=== PATIENT | male | born 1960 ===

== ENCOUNTER 2017-08-25 15:08 | Inpatient (IN) | payer OTHER ==
[2017-08-25 15:08] VITALS: BMI 25.2
[2017-08-25] MEDS ORDERED: Sodium Chloride 0.9% 1,000 ML IV ONE (16:14)
[2017-08-25] MEDS ORDERED: Morphine 4 MG/ML VIAL IV STA ×2 (16:17→19:23)
[2017-08-25] MEDS ORDERED: Sodium Chloride 0.9% 1,000 ML ONE (16:44)
[2017-08-25 17:13] LABS: BASO % 0.1 % (0.0-2.0); EOS # 0.1 K/uL (0.0-0.7); EOS % 0.1 % (0.0-4.0); HEMOGLOBIN 12.9 g/dL (12.0-18.0); LYMPH # 1.4 K/uL (1.0-4.3); LYMPH % 3.2 % (20.0-40.0); MEAN CORPUSCULAR HEMOGLOBIN 31.8 pg (27.0-31.0); MEAN PLATELET VOLUME 8.7 fL (7.2-11.7); MONO # 1.2 K/uL (0.0-0.8); MONO % 2.9 % (0.0-10.0); NEUT # 40.6 K/uL (1.8-7.0); NEUT % 93.7 % (50.0-75.0); RBC 4.06 Mil/uL (4.40-5.90)
[2017-08-25 17:14] LABS: URINE BILIRUBIN NEGATIVE (NEGATIVE); URINE BLOOD NEGATIVE (NEGATIVE); URINE CLARITY Clear (Clear); URINE COLOR Yellow (YELLOW); URINE GLUCOSE (UA) NORMAL (Normal); URINE LEUKOCYTE ESTERASE NEG Leu/uL (Negative); URINE PROTEIN NEGATIVE (NEGATIVE); URINE UROBILINOGEN NORMAL mg/dL (0.2-1.0)
[2017-08-25 17:24] LABS: ALB/GLOB RATIO 1.4 (1.0-2.1); ALBUMIN 4.3 g/dL (3.5-5.0); CALCIUM 8.5 mg/dl (8.6-10.4); GFR AFRICAN-AMERICAN > 60; GFR NON-AFRICAN AMERICAN > 60; MEAN CELL VOLUME 96.5 fL (80.0-94.0); PLATELET COUNT 188 K/uL (130-400); WHITE BLOOD COUNT 43.3 K/uL (4.8-10.8)
[2017-08-25 17:25] LABS: ALT/SGPT 36 U/L (21-72); AST/SGOT 37 U/L (17-59); BLOOD UREA NITROGEN 6 mg/dL (9-20); LIPASE < 10 U/L (23-300)
[2017-08-25] MEDS ORDERED: Iodixanol 320 MG/ML 100 ML BOTTLE IV ONE (17:48)
[2017-08-25 18:53] LABS: BANDS 8 % (0-2); LYMPHOCYTE 2 % (20-40); MONOCYTE 2 % (0-10); NEUTROPHIL 88 % (50-75); PLATELET ESTIMATE NORMAL (NORMAL); TOTAL CELLS COUNTED 100
[2017-08-25 18:54] LABS: MICROCYTOSIS SLIGHT
--- NOTE | 2017-08-25 18:54 | CT ---
PROCEDURE: CT Abdomen and Pelvis with contrast HISTORY: right-sided abd pain - h/o liver CA COMPARISON: None. TECHNIQUE: Contrast dose: 100 mL Visipaque 320 Radiation dose: Total exam DLP = 237.63 mGy-cm. This CT exam was performed using one or more of the following dose reduction techniques: Automated exposure control, adjustment of the mA and/or kV according to patient size, and/or use of iterative reconstruction technique. FINDINGS: LOWER THORAX: Minimal linear scar/atelectasis right lower lobe. LIVER: Normal size and contour. Multiple hepatic masses suspicious for metastasis. Soft tissue density contiguous with inferior right lobe of liver extending into right lateral abdominal wall, new since prior. This represents interval change since 11/15/2016 no biliary dilatation. . Nonspecific periportal edema. GALLBLADDER AND BILE DUCTS: Gallbladder not visualized. Soft tissue density in the region of the gallbladder fossa, nonspecific. This was present previously as well. Uncertain significance. Suspicious for pancreatic neoplasm. PANCREAS: Status post partial pancreatectomy. The pancreatic body/ tail unremarkable. SPLEEN: Mild splenomegaly. ADRENALS: Unremarkable. No mass. KIDNEYS AND URETERS: Unremarkable. No hydronephrosis. No solid mass. VASCULATURE: Unremarkable. No aortic aneurysm. BOWEL: Gastrojejunostomy. Likely prior Whipple procedure. APPENDIX: Unremarkable PERITONEUM: No ascites. There are multiple small mesenteric soft tissue nodules, largest approximately 1.3 cm. Suspicious for metastatic disease. These were not clearly evident on prior CT examination. LYMPH NODES: Unremarkable. No enlarged lymph nodes. BLADDER: Normal REPRODUCTIVE: Unremarkable prostate BONES: No acute fracture. OTHER FINDINGS: None. IMPRESSION: Status post partial pancreatectomy/ Whipple procedure. Gastrojejunostomy. . Ill-defined soft tissue density in rasta hepatis region and region of pancreatic head. Suspicious for neoplasm. Suspect mesenteric metastases. Hepatic metastases. Soft tissue density extending through right lateral abdominal wall. Nonspecific periportal edema. Gastrojejunostomy.
[2017-08-25 18:55] LABS: LARGE PLATELETS PRESENT
[2017-08-25] MEDS ORDERED: Ciprofloxacin 400mg/200ml D5W 400 MG/200 ML BAG IVPB STA (19:23)
[2017-08-25] MEDS ORDERED: metroNIDAZOLE IV 500 mg/100 ml 500 MG/100 ML BAG IVPB STA (19:23)
--- NOTE | 2017-08-25 19:40 | C.PDOC ---
History Of Present Illness 57 y/o male with history of Pancreatic cancer presents to ED with c/o upper abdominal pain "for couple of days" associated with nausea and vomiting. Patient states he finished chemotherapy for cancer 2 weeks ago and states " spots on liver were found but not cancerous". Patient denies blood in stool, fever, hematuria or any other complaints at this time. Chief Complaint (Nursing): Abdominal Pain History Per: Patient History/Exam Limitations: no limitations Onset/Duration Of Symptoms: Days Current Symptoms Are (Timing): Still Present Location Of Pain/Discomfort: Epigastric Past Medical History Reviewed: Historical Data, Nursing Documentation, Vital Signs Vital Signs: Last Vital Signs Temp 98.3 F 08/26/17 00:16 Pulse 71 08/26/17 00:16 Resp 20 08/26/17 00:16 BP 111/77 08/26/17 00:16 Pulse Ox 98 08/26/17 00:16 - Medical History PMH: CHF, Gastritis, HTN, Malignancy (Pancreatic) Surgical History: No Surg Hx - [facility] Procedures DILATION OF COMMON BILE DUCT WITH INTRALUMINAL DEVICE, ENDO (11/30/15) DRAINAGE OF COMMON BILE DUCT, ENDO (11/30/15) Family History: States: No Known Family Hx - Social History Hx Tobacco Use: No Hx Alcohol Use: No Hx Substance Use: No - Immunization History Hx Tetanus Toxoid Vaccination: No Hx Influenza Vaccination: No Hx Pneumococcal Vaccination: No Review Of Systems Constitutional: Negative for: Fever, Chills Gastrointestinal: Positive for: Nausea, Vomiting, Abdominal Pain Genitourinary: Negative for: Dysuria, Hematuria Skin: Negative for: Rash Physical Exam - Physical Exam Appears: Non-toxic, Other (In mild discomfort) Skin: Warm, Dry, No Rash Head: Atraumatic, Normacephalic Eye(s): bilateral: Normal Inspection Oral Mucosa: Moist Neck: Normal ROM, Supple Cardiovascular: Rhythm Regular Respiratory: Normal Breath Sounds, No Rales, No Rhonchi, No Wheezing Gastrointestinal/Abdominal: Bowel Sounds, Soft, Tenderness (diffuse but mostly on right side), No Guarding, No Rebound Neurological/Psych: Oriented x3, Normal Speech, Normal Cognition ED Course And Treatment - Laboratory Results Result Diagrams: 08/25/17 17:05 08/25/17 17:05 O2 Sat by Pulse Oximetry: 99 (RA) Pulse Ox Interpretation: Normal Medical Decision Making Medical Decision Making: Progress: Spoke to Dr. Anguiano, admit under her service and antibiotics started in ED Disposition - Disposition Disposition: HOSPITALIZED Disposition Time: 18:40 Condition: GUARDED - Clinical Impression Clinical Impression: Abdominal pain - Scribe Statement The provider has reviewed the documentation as recorded by the Randyibdavid Nguyen All medical record entries made by the Randyibdavid were at my direction and personally dictated by me. I have reviewed the chart and agree that the record accurately reflects my personal performance of the history, physical exam, medical decision making, and the department course for this patient. I have also personally directed, reviewed, and agree with the discharge instructions and disposition.
[2017-08-25] MEDS ORDERED: metroNIDAZOLE IV 500 mg/100 ml 500 MG/100 ML BAG ONE (19:46)
[2017-08-25] MEDS ORDERED: Morphine 4 MG/ML VIAL ONE (19:46)
[2017-08-25] MEDS ORDERED: Ciprofloxacin 400mg/200ml D5W 400 MG/200 ML BAG IVPB ONE (21:08)
[2017-08-26] MEDS: HYDROmorphone 0.5 mg/0.5 ml ISec IVP PRN ×4 (00:49→21:25)
[2017-08-26 10:01] LABS: HEMOGLOBIN 11.9 g/dL (12.0-18.0); MEAN CORPUSCULAR HGB CONC 33.4 g/dL (33.0-37.0); MEAN PLATELET VOLUME 8.8 fL (7.2-11.7); RBC 3.71 Mil/uL (4.40-5.90); RED CELL DISTRIBUTION WIDTH 14.1 % (11.5-14.5); WHITE BLOOD COUNT 21.8 K/uL (4.8-10.8)
[2017-08-26 10:23] LABS: ALB/GLOB RATIO 1.3 (1.0-2.1); ALBUMIN 3.5 g/dL (3.5-5.0); ALT/SGPT 36 U/L (21-72); AST/SGOT 30 U/L (17-59); BLOOD UREA NITROGEN 6 mg/dL (9-20); CALCIUM 8.4 mg/dl (8.6-10.4); GFR AFRICAN-AMERICAN > 60; GFR NON-AFRICAN AMERICAN > 60
--- NOTE | 2017-08-26 10:29 | CP.PCM.CON ---
<Hussain Sauceda - Last Filed: 08/26/17 10:09> History of Present Illness - History of Present Illness History of Present Illness: Initial GI Consult Note - Ihsan Sauceda PGY2 Patient is a 57yo male with past medical history of pancreatic adenocarcinoma diagnosed in 11/2015 s/p whipple procedure and presently on chemotherapy that presents c/o abdominal pain. He reported that the pain localizes to the epigastric region with radiation to the right flank and 10/10 in severity associated with nausea and non-bilious, non-bloody vomiting. He reported that he has had nausea/vomiting that normally lasts 2-3 days since starting chemotherapy however on this particular occasion his symptoms had lasted longer than usual and with greater severity. His last chemotherapy session was reportedly 2-3 weeks prior during which time he received neulasta. He also admitted to approximately 6lb weight loss within 2 weeks however reported fluctuating weights. Presently, he denies chest pain, palpitations, SOB, fever, chills, cough, focal weakness, numbness, tingling, diarrhea, melena, hematochezia, hematemesis. 12point ROS as per above otherwise negative PMH: as stated above PSH: portacath, whipple procedure, right inguinal hernia repair Family Hx: no reported GI malignancy in the family; father with lung ca Social Hx: Former tobacco use for 20-25 years, 1ppd quit 8 years ago, denies alcohol and illicit drug use Endoscopic Hx: Underwent EGD/EUS/ERCP on 03/21/2016 which revealed 1.7cm x 1.7cm pancreatic head mass with no apparent portal vein or liver involvement as that time, CBD measured up to 10mm; underwent plastic stent exchange that was originally placed on 12/01/2015 Oncologist: Dr. Ivan Past Patient History - Past Medical History & Family History Past Medical History?: Yes - Past Social History Smoking Status: Former Smoker - CARDIAC Hx Cardiac Disorders: Yes Hx Hypertension: Yes - PULMONARY Hx Respiratory Disorders: No - NEUROLOGICAL Hx Neurological Disorder: No - HEENT Hx HEENT Problems: No - RENAL Hx Chronic Kidney Disease: No - ENDOCRINE/METABOLIC Hx Endocrine Disorders: No - HEMATOLOGICAL/ONCOLOGICAL Hx Blood Disorders: Yes Hx Blood Transfusions: No Hx Blood Transfusion Reaction: No Hx Cancer: Yes (pancreatic ca with liver mets) Hx Chemotherapy: Yes - INTEGUMENTARY Hx Dermatological Problems: No - MUSCULOSKELETAL/RHEUMATOLOGICAL Hx Falls: No - GASTROINTESTINAL Hx Gastrointestinal Disorders: Yes Hx Gastritis: Yes - GENITOURINARY/GYNECOLOGICAL Hx Genitourinary Disorders: No - PSYCHIATRIC Hx Substance Use: No - SURGICAL HISTORY Hx Surgeries: Yes (R HERNIA ABOUT 5YRS AGO) Other/Comment: Pancreatectomy/Whipple procedure, Gastojejunostomy 2016 - ANESTHESIA Hx Anesthesia: Yes Hx Anesthesia Reactions: No Hx Malignant Hyperthermia: No Has any member of the family had a problem w/ anesthesia?: No Meds Allergies/Adverse Reactions: Allergies Allergy/AdvReac Type Severity Reaction Status Date / Time No Known Allergies Allergy Verified 02/01/16 09:23 - Medications Medications: Current Medications Heparin Sodium (Porcine) (Heparin) 5,000 units SC Q12 MICHAEL Hydromorphone HCl (Dilaudid) 0.25 mg IVP Q6H PRN PRN Reason: Pain, severe (8-10) Last Admin: 08/26/17 09:08 Dose: 0.25 mg Pneumococcal Polyvalent Vaccine (Pneumovax 23 Vaccine) 0.5 ml IM .ONCE ONE Stop: 08/27/17 10:01 Physical Exam - Constitutional Appears: Older Than Stated Age, Chronically Ill - Head Exam Head Exam: ATRAUMATIC, NORMOCEPHALIC - Eye Exam Eye Exam: EOMI Pupil Exam: PERRL - ENT Exam ENT Exam: Mucous Membranes Moist - Respiratory Exam Respiratory Exam: Clear to Auscultation Bilateral. absent: Rales, Rhonchi, Wheezes - Cardiovascular Exam Cardiovascular Exam: +S1, +S2. absent: Gallop, JVD, Rubs - GI/Abdominal Exam GI & Abdominal Exam: Normal Bowel Sounds, Soft, Tenderness (tender to palpation in epigastric and RUQ region). absent: Distended, Firm, Guarding - Extremities Exam Extremities exam: Positive for: normal inspection. Negative for: pedal edema, tenderness - Neurological Exam Neurological exam: Alert, CN II-XII Intact, Oriented x3 - Psychiatric Exam Psychiatric exam: Normal Affect, Normal Mood - Skin Skin Exam: Dry, Intact, Normal Color, Warm Results - Vital Signs Recent Vital Signs: Last Vital Signs Temp 98 F 08/26/17 07:35 Pulse 70 08/26/17 07:35 Resp 20 08/26/17 07:35 BP 119/79 08/26/17 07:35 Pulse Ox 97 08/26/17 07:35 - Labs Result Diagrams: 08/26/17 09:56 08/25/17 17:05 Labs: Laboratory Results - last 24 hr 08/25/17 08/25/17 08/25/17 17:05 17:05 17:05 WBC 43.3 H* D RBC 4.06 L Hgb 12.9 Hct 39.2 MCV 96.5 H D MCH 31.8 H MCHC 33.0 RDW 14.0 Plt Count 188 D MPV 8.7 Neut % (Auto) 93.7 H Lymph % (Auto) 3.2 L Carbon % (Auto) 2.9 Eos % (Auto) 0.1 Baso % (Auto) 0.1 Neut # (Auto) 40.6 H Lymph # (Auto) 1.4 Carbon # (Auto) 1.2 H Eos # (Auto) 0.1 Baso # (Auto) 0.0 Neutrophils % (Manual) 88 H Band Neutrophils % 8 H Lymphocytes % (Manual) 2 L Monocytes % (Manual) 2 Platelet Estimate Normal Large Platelets Present Microcytosis (manual) Slight Sodium 141 Potassium 4.3 Chloride 102 Carbon Dioxide 25 Anion Gap 18 BUN 6 L Creatinine 0.7 L Est GFR ( Amer) > 60 Est GFR (Non-Af Amer) > 60 Random Glucose 84 Calcium 8.5 L Total Bilirubin 0.6 AST 37 ALT 36 Alkaline Phosphatase 268 H Total Protein 7.4 Albumin 4.3 Globulin 3.1 Albumin/Globulin Ratio 1.4 Lipase < 10 L Urine Color Yellow Urine Clarity Clear Urine pH 5.0 Ur Specific Camp 1.011 Urine Protein Negative Urine Glucose (UA) Normal Urine Ketones Negative Urine Blood Negative Urine Nitrate Negative Urine Bilirubin Negative Urine Urobilinogen Normal Ur Leukocyte Esterase Neg Urine WBC (Auto) 1 Urine RBC (Auto) 1 08/26/17 09:56 WBC 21.8 H RBC 3.71 L Hgb 11.9 L Hct 35.6 MCV 96.0 H MCH 32.0 H MCHC 33.4 RDW 14.1 Plt Count 154 MPV 8.8 Neut % (Auto) Lymph % (Auto) Carbon % (Auto) Eos % (Auto) Baso % (Auto) Neut # (Auto) Lymph # (Auto) Carbon # (Auto) Eos # (Auto) Baso # (Auto) Neutrophils % (Manual) Band Neutrophils % Lymphocytes % (Manual) Monocytes % (Manual) Platelet Estimate Large Platelets Microcytosis (manual) Sodium Potassium Chloride Carbon Dioxide Anion Gap BUN Creatinine Est GFR ( Amer) Est GFR (Non-Af Amer) Random Glucose Calcium Total Bilirubin AST ALT Alkaline Phosphatase Total Protein Albumin Globulin Albumin/Globulin Ratio Lipase Urine Color Urine Clarity Urine pH Ur Specific Camp Urine Protein Urine Glucose (UA) Urine Ketones Urine Blood Urine Nitrate Urine Bilirubin Urine Urobilinogen Ur Leukocyte Esterase Urine WBC (Auto) Urine RBC (Auto) Assessment & Plan - Assessment and Plan (Free Text) Plan: 57yo male with history of pancreatic head adenocarcinoma s/p whipple presently on chemotherapy presents c/o abdominal pain associated with nausea/vomiting 1. Abdominal pain 2. Leukocytosis 3. Hx of pancreatic adenocarcinoma -Case discussed with oncology, patient had received neulasta during prior oncology visit -CT abd/pelvis reviewed; revealed multiple hepatic masses suspicious for metastases and multiple mesenteric soft tissue nodules (largest 1.3cm) suspicious for metastatic disease; refer to full report -Start full liquid diet to be advanced as tolerated -Pain control -Continue present medical management at this time Patient seen and case discussed/reviewed with attending, Dr. Floyd <Morales Floyd Y - Last Filed: 08/26/17 13:25> Meds - Medications Medications: Current Medications Heparin Sodium (Porcine) (Heparin) 5,000 units SC Q12 [facility] Last Admin: 08/26/17 10:54 Dose: 5,000 units Hydromorphone HCl (Dilaudid) 0.25 mg IVP Q6H PRN PRN Reason: Pain, severe (8-10) Last Admin: 08/26/17 09:08 Dose: 0.25 mg Piperacillin Sod/Tazobactam Sod (Zosyn 3.375 Gm Iv Premix) 3.375 gm in 50 mls @ 100 mls/hr IVPB Q8 MICHAEL PRN Reason: Protocol Pantoprazole Sodium (Protonix Ec Tab) 40 mg PO DAILY [facility] Pneumococcal Polyvalent Vaccine (Pneumovax 23 Vaccine) 0.5 ml IM .ONCE ONE Stop: 08/27/17 10:01 Results - Vital Signs Recent Vital Signs: Last Vital Signs Temp 98 F 08/26/17 07:35 Pulse 70 08/26/17 07:35 Resp 20 08/26/17 07:35 BP 119/79 08/26/17 07:35 Pulse Ox 97 08/26/17 07:35 - Labs Result Diagrams: 08/26/17 09:56 08/26/17 09:56 Labs: Laboratory Results - last 24 hr 08/25/17 08/25/17 08/25/17 17:05 17:05 17:05 WBC 43.3 H* D RBC 4.06 L Hgb 12.9 Hct 39.2 MCV 96.5 H D MCH 31.8 H MCHC 33.0 RDW 14.0 Plt Count 188 D MPV 8.7 Neut % (Auto) 93.7 H Lymph % (Auto) 3.2 L Carbon % (Auto) 2.9 Eos % (Auto) 0.1 Baso % (Auto) 0.1 Neut # (Auto) 40.6 H Lymph # (Auto) 1.4 Carbon # (Auto) 1.2 H Eos # (Auto) 0.1 Baso # (Auto) 0.0 Neutrophils % (Manual) 88 H Band Neutrophils % 8 H Lymphocytes % (Manual) 2 L Monocytes % (Manual) 2 Platelet Estimate Normal Large Platelets Present Microcytosis (manual) Slight Smear Path Review Sodium 141 Potassium 4.3 Chloride 102 Carbon Dioxide 25 Anion Gap 18 BUN 6 L Creatinine 0.7 L Est GFR ( Amer) > 60 Est GFR (Non-Af Amer) > 60 Random Glucose 84 Calcium 8.5 L Total Bilirubin 0.6 AST 37 ALT 36 Alkaline Phosphatase 268 H Total Protein 7.4 Albumin 4.3 Globulin 3.1 Albumin/Globulin Ratio 1.4 Lipase < 10 L Urine Color Yellow Urine Clarity Clear Urine pH 5.0 Ur Specific Camp 1.011 Urine Protein Negative Urine Glucose (UA) Normal Urine Ketones Negative Urine Blood Negative Urine Nitrate Negative Urine Bilirubin Negative Urine Urobilinogen Normal Ur Leukocyte Esterase Neg Urine WBC (Auto) 1 Urine RBC (Auto) 1 08/26/17 08/26/17 09:56 09:56 WBC 21.8 H RBC 3.71 L Hgb 11.9 L Hct 35.6 MCV 96.0 H MCH 32.0 H MCHC 33.4 RDW 14.1 Plt Count 154 MPV 8.8 Neut % (Auto) Lymph % (Auto) Carbon % (Auto) Eos % (Auto) Baso % (Auto) Neut # (Auto) Lymph # (Auto) Carbon # (Auto) Eos # (Auto) Baso # (Auto) Neutrophils % (Manual) Band Neutrophils % Lymphocytes % (Manual) Monocytes % (Manual) Platelet Estimate Large Platelets Microcytosis (manual) Smear Path Review Sodium 142 Potassium 4.1 Chloride 104 Carbon Dioxide 28 Anion Gap 15 BUN 6 L Creatinine 0.6 L Est GFR ( Amer) > 60 Est GFR (Non-Af Amer) > 60 Random Glucose 91 Calcium 8.4 L Total Bilirubin 0.4 AST 30 ALT 36 Alkaline Phosphatase 262 H Total Protein 6.3 Albumin 3.5 Globulin 2.8 Albumin/Globulin Ratio 1.3 Lipase Urine Color Urine Clarity Urine pH Ur Specific Camp Urine Protein Urine Glucose (UA) Urine Ketones Urine Blood Urine Nitrate Urine Bilirubin Urine Urobilinogen Ur Leukocyte Esterase Urine WBC (Auto) Urine RBC (Auto) Attending/Attestation - Attestation I have personally seen and examined this patient.: Yes I have fully participated in the care of the patient.: Yes I have reviewed all pertinent clinical information: Yes Notes (Text): 08/26/17 13:18 I have seen and examined patient with GI fellow and medical i d sales. Agree with above documentation with the following additions. In brief, this is a 57 year old male with history of pancreatic cancer s/p whipple on chemotherapy who presents to hospital with complaint of abdominal pain. He describes persistent epigastric abdominal pain for the past 3 months which has gotten worse over the past 2 weeks. He endorses sharp 10/10 intensity epigastric pain that radiates to right side and associated with nausea and non-bloody emesis. He has been receiving chemotherapy, followed by Dr. Ivan, received Neulasta with last dose two weeks ago. He denies recent travel, sick contacts, unusual food consumption , fever/chills. He does report a weight loss of nearly 6 pounds over the past two weeks. No recurrent vomiting since arrival to hospital, he is hungry and asking for diet to be advanced. Review of vitals from today are normal. Additional physical examination: Abdomen: no palpable hepato/splenomegaly Pancreatic cancer s/p whipple on chemotherapy Abdominal pain CT imaging reviewed by me showing multiple hepatic lesions and peritoneal implants suggestive of metastatic disease - Liquid diet as tolerated - Continue with PPI therapy - Leukocytosis likely related to neulasta, no clinical indication to suspect infectious process, follow up ID recommendations - Follow up oncology recommendations - Currently no indication for GI intervention despite advanced disease, no obstructive pathology noted. Will continue to monitor patient clinical course.
--- NOTE | 2017-08-26 12:40 | CP.PCM.CON ---
History of Present Illness - History of Present Illness History of Present Illness: INFECTIOUS DISEASE CONSULT; HPI; Patient is a 57yo male with past medical history of pancreatic adenocarcinoma diagnosed in 11/2015 s/p whipple procedure and presently on chemotherapy that presents c/o abdominal pain. He reported that the pain localizes to the epigastric region with radiation to the right flank and 10/10 in severity associated with nausea and non-bilious, non-bloody vomiting. He reported that he has had nausea/vomiting that normally lasts 2-3 days since starting chemotherapy however on this particular occasion his symptoms had lasted longer than usual and with greater severity. His last chemotherapy session was reportedly 2-3 weeks prior during which time he received neulasta. He also admitted to approximately 6lb weight loss within 2 weeks however reported fluctuating weights. Presently, he denies chest pain, palpitations, SOB , fever, chills, cough, focal weakness, numbness, tingling, diarrhea, melena, hematochezia, hematemesis. INFECTIOUS DISEASE CONSULTATION REQUESTED BY PMD DR GRAVES BECAUSE OF INCREASING LEUKOCYTOSIS OF 43,000. PATIENT WAS GIVEN A DOSE OF CIPRO AND iv fLAGYL IN THE ER. THIS A.M. PATIENT'S WBC IMPROVED TO 21.8. pATIENT DENIES ANY COUGH OR EXPECTORATION. DENIES ANY CHEST PAIN/OR SHORTNESS OF BREATH. CT ABDOMEN AND PELVIS WITH iv CONTRAST ON 08/25/17-SHOWED PARTIAL PANCREATECTOMY , wHIPPLE'S PROCEDURE, GASTROJEJUNOSTOMY. ILL-DEFINED MASS LARRY HEPATIS REGION PANCREATIC HEAD? NEOPLASM WITH ? MESENTERIC METASTASIS/HEPATIC METASTASIS. PMH: CHF, Gastritis, HTN, Malignancy (Pancreatic) Surgical History: No Surg Hx FH; DENIES CA IN FAMILY. - [facility] Procedures DILATION OF COMMON BILE DUCT WITH INTRALUMINAL DEVICE, ENDO (11/30/15) DRAINAGE OF COMMON BILE DUCT, ENDO (11/30/15) Family History: States: No Known Family Hx - Social History Hx Tobacco Use: No Hx Alcohol Use: No Hx Substance Use: No - Immunization History Hx Tetanus Toxoid Vaccination: No Hx Influenza Vaccination: No Hx Pneumococcal Vaccination: No ALLERGY; NKA. Review of Systems - Constitutional Constitutional: absent: Chills, Fever - EENT Eyes: absent: Change in Vision Nose/Mouth/Throat: absent: Mouth Lesions, Odynophagia - Cardiovascular Cardiovascular: absent: Chest Pain, Dyspnea, Dyspnea on Exertion - Respiratory Respiratory: absent: Cough, Hemoptysis - Gastrointestinal Gastrointestinal: Abdominal Pain (EPIGASTRIC/RIGHT FLANK .) - Genitourinary Genitourinary: absent: Dysuria, Hematuria, Freq UTI - Integumentary Integumentary: absent: Sores - Neurological Neurological: absent: Headaches, Tremor - Hematologic/Lymphatic Hematologic: As Per HPI. absent: Easy Bleeding, Easy Bruising, Lymphadenopathy Past Patient History - Past Medical History & Family History Past Medical History?: Yes - Past Social History Smoking Status: Former Smoker - CARDIAC Hx Cardiac Disorders: Yes Hx Hypertension: Yes - PULMONARY Hx Respiratory Disorders: No - NEUROLOGICAL Hx Neurological Disorder: No - HEENT Hx HEENT Problems: No - RENAL Hx Chronic Kidney Disease: No - ENDOCRINE/METABOLIC Hx Endocrine Disorders: No - HEMATOLOGICAL/ONCOLOGICAL Hx Blood Disorders: Yes Hx Blood Transfusions: No Hx Blood Transfusion Reaction: No Hx Cancer: Yes (pancreatic ca with liver mets) Hx Chemotherapy: Yes - INTEGUMENTARY Hx Dermatological Problems: No - MUSCULOSKELETAL/RHEUMATOLOGICAL Hx Falls: No - GASTROINTESTINAL Hx Gastrointestinal Disorders: Yes Hx Gastritis: Yes - GENITOURINARY/GYNECOLOGICAL Hx Genitourinary Disorders: No - PSYCHIATRIC Hx Substance Use: No - SURGICAL HISTORY Hx Surgeries: Yes (R HERNIA ABOUT 5YRS AGO) Other/Comment: Pancreatectomy/Whipple procedure, Gastojejunostomy 2015 - ANESTHESIA Hx Anesthesia: Yes Hx Anesthesia Reactions: No Hx Malignant Hyperthermia: No Has any member of the family had a problem w/ anesthesia?: No Meds Allergies/Adverse Reactions: Allergies Allergy/AdvReac Type Severity Reaction Status Date / Time No Known Allergies Allergy Verified 02/01/16 09:23 - Medications Medications: Current Medications Heparin Sodium (Porcine) (Heparin) 5,000 units SC Q12 MICHAEL Last Admin: 08/26/17 10:54 Dose: 5,000 units Hydromorphone HCl (Dilaudid) 0.25 mg IVP Q6H PRN PRN Reason: Pain, severe (8-10) Last Admin: 08/26/17 09:08 Dose: 0.25 mg Pneumococcal Polyvalent Vaccine (Pneumovax 23 Vaccine) 0.5 ml IM .ONCE ONE Stop: 08/27/17 10:01 Physical Exam - Constitutional Appears: No Acute Distress, Cachectic, Chronically Ill - Head Exam Head Exam: NORMAL INSPECTION - Eye Exam Eye Exam: EOMI, PERRL. absent: Scleral icterus - ENT Exam ENT Exam: Normal Oropharynx - Neck Exam Neck exam: Positive for: Normal Inspection - Respiratory Exam Respiratory Exam: Clear to Auscultation Bilateral - Cardiovascular Exam Cardiovascular Exam: REGULAR RHYTHM, +S1, +S2 - GI/Abdominal Exam GI & Abdominal Exam: Normal Bowel Sounds, Soft, Tenderness (EPIGASTRIC AND RIGHT FLANK REGION ON PALPATION.). absent: Organomegaly - Extremities Exam Extremities exam: Positive for: pedal pulses present. Negative for: calf tenderness, pedal edema - Neurological Exam Neurological exam: Alert, CN II-XII Intact, Oriented x3, Reflexes Normal - Psychiatric Exam Psychiatric exam: Normal Mood - Skin Skin Exam: Normal Color, Warm Results - Vital Signs Recent Vital Signs: Last Vital Signs Temp 98 F 08/26/17 07:35 Pulse 70 08/26/17 07:35 Resp 20 08/26/17 07:35 BP 119/79 08/26/17 07:35 Pulse Ox 97 08/26/17 07:35 - Labs Result Diagrams: 08/26/17 09:56 08/26/17 09:56 Labs: Laboratory Results - last 24 hr 08/25/17 08/25/17 08/25/17 17:05 17:05 17:05 WBC 43.3 H* D RBC 4.06 L Hgb 12.9 Hct 39.2 MCV 96.5 H D MCH 31.8 H MCHC 33.0 RDW 14.0 Plt Count 188 D MPV 8.7 Neut % (Auto) 93.7 H Lymph % (Auto) 3.2 L Elliott % (Auto) 2.9 Eos % (Auto) 0.1 Baso % (Auto) 0.1 Neut # (Auto) 40.6 H Lymph # (Auto) 1.4 Elliott # (Auto) 1.2 H Eos # (Auto) 0.1 Baso # (Auto) 0.0 Neutrophils % (Manual) 88 H Band Neutrophils % 8 H Lymphocytes % (Manual) 2 L Monocytes % (Manual) 2 Platelet Estimate Normal Large Platelets Present Microcytosis (manual) Slight Smear Path Review Sodium 141 Potassium 4.3 Chloride 102 Carbon Dioxide 25 Anion Gap 18 BUN 6 L Creatinine 0.7 L Est GFR ( Amer) > 60 Est GFR (Non-Af Amer) > 60 Random Glucose 84 Calcium 8.5 L Total Bilirubin 0.6 AST 37 ALT 36 Alkaline Phosphatase 268 H Total Protein 7.4 Albumin 4.3 Globulin 3.1 Albumin/Globulin Ratio 1.4 Lipase < 10 L Urine Color Yellow Urine Clarity Clear Urine pH 5.0 Ur Specific [place] 1.011 Urine Protein Negative Urine Glucose (UA) Normal Urine Ketones Negative Urine Blood Negative Urine Nitrate Negative Urine Bilirubin Negative Urine Urobilinogen Normal Ur Leukocyte Esterase Neg Urine WBC (Auto) 1 Urine RBC (Auto) 1 08/26/17 08/26/17 09:56 09:56 WBC 21.8 H RBC 3.71 L Hgb 11.9 L Hct 35.6 MCV 96.0 H MCH 32.0 H MCHC 33.4 RDW 14.1 Plt Count 154 MPV 8.8 Neut % (Auto) Lymph % (Auto) Elliott % (Auto) Eos % (Auto) Baso % (Auto) Neut # (Auto) Lymph # (Auto) Elliott # (Auto) Eos # (Auto) Baso # (Auto) Neutrophils % (Manual) Band Neutrophils % Lymphocytes % (Manual) Monocytes % (Manual) Platelet Estimate Large Platelets Microcytosis (manual) Smear Path Review Sodium 142 Potassium 4.1 Chloride 104 Carbon Dioxide 28 Anion Gap 15 BUN 6 L Creatinine 0.6 L Est GFR ( Amer) > 60 Est GFR (Non-Af Amer) > 60 Random Glucose 91 Calcium 8.4 L Total Bilirubin 0.4 AST 30 ALT 36 Alkaline Phosphatase 262 H Total Protein 6.3 Albumin 3.5 Globulin 2.8 Albumin/Globulin Ratio 1.3 Lipase Urine Color Urine Clarity Urine pH Ur Specific [place] Urine Protein Urine Glucose (UA) Urine Ketones Urine Blood Urine Nitrate Urine Bilirubin Urine Urobilinogen Ur Leukocyte Esterase Urine WBC (Auto) Urine RBC (Auto) Assessment & Plan (1) Abdominal pain Assessment and Plan: LOPEZ CULTURE. START IV ZOSYN 3.375MG IV Q 8HRLY.08/25/17. AWAIT CULTURES TO ADJUST ABXS. IF CULTURES -VE X 24-36HRS WILL DC ABX. LEKOCYTOSIS SEC. -SEPSIS -INTRA ABDOMINAL NECROTIZING TUMOR VS NEULASTA. WILL FOLLOW. Status: Acute (2) Pancreatic cancer Status: Acute (3) Pancreatic mass Status: Acute (4) History of partial pancreatectomy Assessment and Plan: S/P PARTIAL PANCREATECTOMY/wHIPPLE'S PROCEDURE gASTROJEJUNOSTOMY AT [facility] – [place] 2015. Status: Acute
[2017-08-26] MEDS: Pantoprazole 40 mg EC Tab PO SCH (13:43)
[2017-08-26] MEDS: Piperacill/Tazo 3.375gm in Dex 3.375 GM/50 ML BAG IVPB SCH ×2 (13:43→21:27)
[2017-08-27] MEDS: HYDROmorphone 0.5 mg/0.5 ml ISec IVP PRN ×3 (03:55→19:52)
--- NOTE | 2017-08-27 06:07 | HP ---
CHIEF COMPLAINT: Abdominal pain. HISTORY OF PRESENT ILLNESS: Mr. Roman Hill is a 57-year-old male with history of pancreatic cancer, came to the emergency room, complaining of upper abdominal pain for couple of days associated with nausea and vomiting. The patient said that he missed chemotherapy for cancer 2 weeks ago and states spots of liver were found, but not cancers. The patient denies blood in the stool or fever, hematuria, hematochezia, dyspnea, or dysuria. PAST MEDICAL HISTORY: Congestive heart failure, gastritis, hypertension, pancreatic malignancy. PAST SURGICAL HISTORY: No. HABITS: No tobacco. No alcohol. No substance abuse. REVIEW OF SYSTEMS: The patient was seen and examined at the bedside, complaining about abdominal pain. No fever. No chills. No headache or dizziness. No chest pain or palpitation. No dyspnea. No dysuria. PHYSICAL EXAMINATION: VITAL SIGNS: Temperature 98.3, pulse 71, respiratory rate 20, blood pressure 111/77, and pulse oximetry 98. HEENT: Head, normocephalic and atraumatic. Eyes, PERRLA. Extraocular muscles are intact. Conjunctivae clear. Nose patent. Mucous membranes moist. NECK: Supple. No carotid bruits, JVD, or thyromegaly. CHEST: Bilaterally symmetrical. HEART: S1 and S2 positive. LUNGS: Clear to auscultation. ABDOMEN: Soft. Bowel sounds present. No organomegaly. EXTREMITIES: No edema. No cyanosis. NEUROLOGIC: The patient is awake and alert. Moving all four extremities. No focal deficits. LABORATORY DATA: White blood cell is 43.3, hemoglobin 12.9, hematocrit 39.2, and platelets 188. Sodium 141, potassium 4.3, BUN 6, creatinine 0.6, and glucose 84. ASSESSMENT AND PLAN: Mr. Roman Hill is a 57-year-old male with leukocytosis, came with abdominal pain, past history of congestive heart failure, gastritis, hypertension, pancreatic cancer, spots on the liver, also rule out malignancy, forgot chemotherapy, 2 weeks ago. We admitted the patient, called ID consult with Dr. Frantz Navarrete; because of leukocytosis, rule out infections. Repeat white blood cell is improving. Seen by Dr. Morales Floyd. CAT scan of the abdomen and pelvis done. The patient has history of Port-A-Cath placement, Whipple procedure, right inguinal hernia repair. Called and consulted with Dr. Ivan, oncologist. Started with ciprofloxacin, hydromorphone, and metronidazole, Gastrointestinal and deep venous thrombosis prophylaxis. Repeat labs. We will followup. Magui Anguiano MD BLANQUITA
[2017-08-27] MEDS: Piperacill/Tazo 3.375gm in Dex 3.375 GM/50 ML BAG IVPB SCH ×3 (06:24→22:00)
[2017-08-27 06:36] LABS: MEAN CELL VOLUME 95.9 fL (80.0-94.0); MEAN CORPUSCULAR HEMOGLOBIN 32.3 pg (27.0-31.0); MEAN CORPUSCULAR HGB CONC 33.6 g/dL (33.0-37.0); MEAN PLATELET VOLUME 9.5 fL (7.2-11.7); RBC 4.02 Mil/uL (4.40-5.90); RED CELL DISTRIBUTION WIDTH 14.3 % (11.5-14.5); WHITE BLOOD COUNT 20.6 K/uL (4.8-10.8)
[2017-08-27 06:50] LABS: IRON 33 ug/dL (49-181)
[2017-08-27 06:54] LABS: LDL CHOLESTEROL 58 mg/dL (0-129)
[2017-08-27 06:55] LABS: BLOOD UREA NITROGEN 8 mg/dL (9-20); GFR AFRICAN-AMERICAN > 60; GFR NON-AFRICAN AMERICAN > 60
[2017-08-27 06:56] LABS: ALB/GLOB RATIO 1.6 (1.0-2.1); ALBUMIN 4.3 g/dL (3.5-5.0); ALT/SGPT 46 U/L (21-72); AST/SGOT 32 U/L (17-59); HDL CHOLESTEROL 38 mg/dL (30-70)
[2017-08-27 06:59] LABS: % IRON SATURATION 10 (20-55); TOTAL IRON BINDING CAPACITY 332 ug/dL (250-450)
[2017-08-27 07:48] LABS: FOLATE > 20.0 ng/mL
[2017-08-27] MEDS ORDERED: Pneumococcal 23-Valent Vaccine IM ONE (10:00)
[2017-08-27] MEDS: Pantoprazole 40 mg EC Tab PO SCH (10:23)
--- NOTE | 2017-08-27 10:42 | CP.PCM.PN ---
<Hussain Sauceda - Last Filed: 08/27/17 12:59> Subjective - Date & Time of Evaluation Date of Evaluation: 08/27/17 Time of Evaluation: 10:37 - Subjective Subjective: GI progress note - Ihsan Venturablayneneena PGY2 Patient seen and examined at bedside. No acute overnight events or new complaints reported. States his abdominal pain has improved and is eager to have his diet advanced. Denies nausea, vomiting, diarrhea. 12point ROS as per above otherwise negative. Objective - Vital Signs/Intake and Output Vital Signs (last 24 hours): Temp Pulse Resp BP Pulse Ox 98.1 F 78 20 101/64 98 08/27/17 07:00 08/27/17 07:00 08/27/17 07:00 08/27/17 07:00 08/27/17 07:00 Intake and Output: 08/27/17 08/27/17 06:59 18:59 Intake Total 290 Balance 290 - Medications Medications: Current Medications Heparin Sodium (Porcine) (Heparin) 5,000 units SC Q12 [facility] Last Admin: 08/27/17 10:23 Dose: 5,000 units Hydromorphone HCl (Dilaudid) 0.25 mg IVP Q6H PRN PRN Reason: Pain, severe (8-10) Last Admin: 08/27/17 03:55 Dose: 0.25 mg Piperacillin Sod/Tazobactam Sod (Zosyn 3.375 Gm Iv Premix) 3.375 gm in 50 mls @ 100 mls/hr IVPB Q8 MICHAEL PRN Reason: Protocol Last Admin: 08/27/17 06:24 Dose: 100 mls/hr Pantoprazole Sodium (Protonix Ec Tab) 40 mg PO DAILY [facility] Last Admin: 08/27/17 10:23 Dose: 40 mg - Labs Labs: 08/27/17 06:16 08/27/17 06:16 - Constitutional Appears: Cachectic, Chronically Ill - Head Exam Head Exam: ATRAUMATIC, NORMAL INSPECTION, NORMOCEPHALIC - Eye Exam Eye Exam: EOMI Pupil Exam: PERRL - ENT Exam ENT Exam: Mucous Membranes Moist - Respiratory Exam Respiratory Exam: absent: Rales, Rhonchi, Wheezes - Cardiovascular Exam Cardiovascular Exam: +S1, +S2. absent: Gallop, Rubs - GI/Abdominal Exam GI & Abdominal Exam: Soft. absent: Distended, Firm, Guarding, Rigid, Tenderness , Rebound - Extremities Exam Extremities Exam: Normal Inspection. absent: Pedal Edema - Neurological Exam Neurological Exam: Alert, Awake, CN II-XII Intact, Oriented x3 - Psychiatric Exam Psychiatric exam: Normal Affect, Normal Mood - Skin Skin Exam: Dry, Intact, Normal Color, Warm Assessment and Plan - Assessment and Plan (Free Text) Plan: 57yo male with history of pancreatic head adenocarcinoma s/p whipple presently on chemotherapy presents c/o abdominal pain associated with nausea/vomiting 1. Abdominal pain 2. Leukocytosis 3. Hx of pancreatic adenocarcinoma s/p whipple on chemo -Recommend soft, frequent meals as tolerated -Continue with PPI therapy -Case discussed with oncology, patient had received neulasta with last dose 2 weeks prior; leukocytosis related to neulasta and is downtrending at this time, however f/u ID recommendations -CT abd/pelvis reviewed; revealed multiple hepatic masses suspicious for metastases and multiple mesenteric soft tissue nodules (largest 1.3cm) suspicious for metastatic disease; refer to full report -Pain control -Recommend f/u oncology recommendations -No present indication for GI intervention despite advanced disease, no obstructive pathology noted; GI will sign off this case, please reconsult as deemed necessary Case discussed with attending, Dr. Partida <Kieran Partida - Last Filed: 08/27/17 16:47> Objective - Vital Signs/Intake and Output Vital Signs (last 24 hours): Temp Pulse Resp BP Pulse Ox 98.4 F 76 20 100/64 98 08/27/17 15:00 08/27/17 15:00 08/27/17 15:00 08/27/17 15:00 08/27/17 15:00 Intake and Output: 08/27/17 08/27/17 06:59 18:59 Intake Total 290 530 Balance 290 530 - Medications Medications: Current Medications Heparin Sodium (Porcine) (Heparin) 5,000 units SC Q12 [facility] Last Admin: 08/27/17 10:23 Dose: 5,000 units Hydromorphone HCl (Dilaudid) 0.5 mg IVP Q6H PRN PRN Reason: pain Piperacillin Sod/Tazobactam Sod (Zosyn 3.375 Gm Iv Premix) 3.375 gm in 50 mls @ 100 mls/hr IVPB Q8 [facility] PRN Reason: Protocol Last Admin: 08/27/17 14:35 Dose: 100 mls/hr Pantoprazole Sodium (Protonix Ec Tab) 40 mg PO DAILY [facility] Last Admin: 08/27/17 10:23 Dose: 40 mg - Labs Labs: 08/27/17 06:16 08/27/17 06:16 Attending/Attestation - Attestation I have personally seen and examined this patient.: Yes I have fully participated in the care of the patient.: Yes I have reviewed all pertinent clinical information, including history, physical exam and plan: Yes Notes (Text): 08/27/17 16:47 57 year old male with h/o pancreatic cancer s/p whipple with evidence of recurrence/metastases admitted with abdominal pain. Recommend pain control and anti-emetics as needed. Management of chemo per oncology. No GI intervention. Small frequent meals. Advance diet as tolerated.
[2017-08-27] MEDS ORDERED: HYDROmorphone 0.5 mg/0.5 ml ISec IVP STA (12:40)
[2017-08-28] MEDS: HYDROmorphone 0.5 mg/0.5 ml ISec IVP PRN ×4 (01:59→21:10)
[2017-08-28] MEDS: Piperacill/Tazo 3.375gm in Dex 3.375 GM/50 ML BAG IVPB SCH ×3 (05:35→21:33)
[2017-08-28] MEDS: Pantoprazole 40 mg EC Tab PO SCH (10:00)
--- NOTE | 2017-08-28 19:40 | CP.PCM.PN ---
Subjective - Date & Time of Evaluation Date of Evaluation: 08/28/17 Time of Evaluation: 19:40 - Subjective Subjective: CHIEF COMPLAINTS TODAY : AFEBRILE VS BP LOW. C/O ABDOMINAL PAIN FEELS SLIGHTLY BETTER ROS. HEENT : N. Resp : No cough, wheezing ,pleuritic CP ,or hemoptysis Cardio : No anginal CP, PND, orthopnea, palpitation GI : +VE ABD. PAIN, NO n/v ,diarrhea or GI bleeding . CLOTHING MAN : No headache, vertigo, focal deficit. Musculoskel : No joint swelling , Derm : No rash Psych : Normal affect. Ext : No swelling ,calf pain PE. Pt. is alert awake in no distress. V.S As noted in the chart Head ,ear nose,throat and eyes : Normal. Neck : Supple with normal carotids. Lungs: Clear air entry. Heart : S1 & S2 normal with S4. No murmur. Abd : SOFT , MILD TENDERNESS EPIGASTRIUM /RUQ WITH RADIATION BOTH UPPER QUADRANTS BAND LIKE, with normal bowel sounds. Neuro : Moves all ext. with no localized deficit. Ext : No edema with intact pulses.Non tender calves Derm : No rashes or decubitus ulcer. LABS/RADIOLOGY: WBC 20.1 IMPROVING. BLOOD CULTURES -VE X 48HRS. URINE CULTURES -VE ASSESSMENT. ABDOMINAL PAIN METASTATIC PANCREATIC CA LEUKOCYTOSIS SEC. TO NEULASTA. PARTIAL PANCREATECTOMY. /PLAN : DC IV ABX . OBSERVE OFF ABX. PT TO F/U WITH ONCOLOGY. Objective - Vital Signs/Intake and Output Vital Signs (last 24 hours): Temp Pulse Resp BP Pulse Ox 97.9 F 69 20 102/67 98 08/28/17 16:00 08/28/17 16:00 08/28/17 16:00 08/28/17 16:00 08/28/17 16:00 Intake and Output: 08/28/17 08/29/17 18:59 06:59 Intake Total 250 Balance 250 - Medications Medications: Current Medications Heparin Sodium (Porcine) (Heparin) 5,000 units SC Q12 MICHAEL Last Admin: 08/28/17 10:00 Dose: Not Given Hydromorphone HCl (Dilaudid) 1 mg IVP Q6H PRN PRN Reason: pain Piperacillin Sod/Tazobactam Sod (Zosyn 3.375 Gm Iv Premix) 3.375 gm in 50 mls @ 100 mls/hr IVPB Q8 MICHAEL PRN Reason: Protocol Last Admin: 08/28/17 14:59 Dose: 100 mls/hr Pantoprazole Sodium (Protonix Ec Tab) 40 mg PO DAILY [facility] Last Admin: 08/28/17 10:00 Dose: 40 mg - Labs Labs: 08/27/17 06:16 08/27/17 06:16 Assessment and Plan (1) Abdominal pain Status: Acute (2) Pancreatic cancer Status: Acute (3) Pancreatic mass Status: Acute (4) History of partial pancreatectomy Status: Acute
--- NOTE | 2017-08-28 23:00 | PN ---
DATE: 08/28/2017 SUBJECTIVE: The patient was seen and examined at the bedside, looking comfortable. No headache or dizziness. No fever. No chills. No chest pain or palpitation, but still complaining about abdominal pain. According to him, Dilaudid 0.5 mg is not holding his pain. PHYSICAL EXAMINATION VITAL SIGNS: Temperature 97.9, pulse 59, blood pressure 102/57, respiratory rate 20. HEENT: Head normocephalic and atraumatic. Eyes, PERRLA. Extraocular muscles intact. Conjunctivae clear. Nose patent. Mucous membranes moist. NECK: Supple. No carotid bruits. No JVD or thyromegaly. CHEST: Bilaterally symmetrical. HEART: S1 and S2 positive. LUNGS: Clear to auscultation. ABDOMEN: Soft, tender. EXTREMITIES: No edema. No cyanosis. NEUROLOGIC: The patient is awake, alert. Follows simple commands. MEDICATIONS: Dilaudid, heparin, Protonix, Glucerna. LABORATORY DATA: White blood cell 20.6, on admission it was 43.3. Hemoglobin 13, hematocrit 38.5, platelets 157. Sodium 142, potassium 4.3, BUN is 13.8, glucose 85. ASSESSMENT AND PLAN: Mr. Roman Hill is a 57-year-old male with pancreatic cancer; hypothyroidism; leukocytosis improving, on admission was 43.3, today was just about 20.6. Has pancreatic head adenocarcinoma, status post Whipple procedure, on chemotherapy, presented with abdominal pain associated with nausea or vomiting. Gastrointestinal recommended soft frequent meals as tolerated. Continue proton pump inhibitors. Gastrointestinal had discussion with Oncology. The patient has received Neulasta two weeks prior , with Neulasta and either down trending at this time, but Infectious Disease is on the case. CT of the abdomen and pelvis was appreciated. Followup recommendations. Gastrointestinal and deep venous thrombosis prophylaxis. Repeat labs. We will follow up. Magui Anguiano MD MTDD
[2017-08-29] MEDS: HYDROmorphone 0.5 mg/0.5 ml ISec IVP PRN ×4 (04:00→22:23)
--- NOTE | 2017-08-29 04:14 | PN ---
DATE: 08/27/2017 SUBJECTIVE: The patient is a 57-year-old male. The patient was seen and examined at bedside on 08/27/2017, looking comfortable. No acute event overnight. No new complaints. States his abdominal pain has improved, but still he wants his diet to be advanced. No nausea, vomiting, or diarrhea. PHYSICAL EXAMINATION: VITAL SIGNS: Temperature 98.1, pulse 78, respiratory rate 20, blood pressure 101/64, pulse oximetry 98. HEENT: Head is normocephalic and atraumatic. Eyes: PERRLA. Extraocular muscles are intact. Conjunctivae clear. Nose patent. Mucous membranes moist. NECK: Supple. No carotid bruit, JVD or thyromegaly. CHEST: Bilaterally symmetrical. HEART: S1 and S2 positive. LUNGS: Clear to auscultation. ABDOMEN: Soft. Bowel sounds present. No organomegaly. EXTREMITIES: No edema. No cyanosis. NEUROLOGIC: The patient is awake, alert. Moving all 4 extremities. No focal deficits. MEDICATIONS: Heparin, Dilaudid, Zosyn, Protonix. LABORATORY DATA: White blood cell 20.6, hemoglobin 13, hematocrit 38.5, platelets 167. Sodium 140, potassium 4.3, BUN 13.2, glucose 85. ASSESSMENT AND PLAN: Mr. Roman Hill is 57 years old male with leukocytosis, having pancreatic head adenocarcinoma, status post Whipple procedure, on chemotherapy. Came with abdominal pain associated with nausea and vomiting, improving a lot. Recommended soft, frequent meals as tolerated. Continue with PPI. Oncologist on the case. CAT scan of the abdomen and pelvis was also reviewed by me, revealed multiple hepatic masses, suspicious metastasis. Multiple mesenteric soft tissue nodules, larger 1.2 cm, suspicious metastatic disease. Referred for pain control. GI and DVT prophylaxis. We are manipulating the patient's pain management. We will follow up. Magui Anguiano MD
[2017-08-29 07:57] LABS: HEMOGLOBIN 12.2 g/dL (12.0-18.0); MEAN CORPUSCULAR HEMOGLOBIN 32.4 pg (27.0-31.0); MEAN CORPUSCULAR HGB CONC 33.7 g/dL (33.0-37.0); MEAN PLATELET VOLUME 8.9 fL (7.2-11.7); RBC 3.78 Mil/uL (4.40-5.90); RED CELL DISTRIBUTION WIDTH 14.4 % (11.5-14.5); WHITE BLOOD COUNT 18.4 K/uL (4.8-10.8)
[2017-08-29 08:08] LABS: ALB/GLOB RATIO 1.5 (1.0-2.1); ALBUMIN 3.9 g/dL (3.5-5.0); ALT/SGPT 40 U/L (21-72); AST/SGOT 37 U/L (17-59); BLOOD UREA NITROGEN 11 mg/dL (9-20); CALCIUM 8.6 mg/dl (8.6-10.4); GFR AFRICAN-AMERICAN > 60; GFR NON-AFRICAN AMERICAN > 60
[2017-08-29] MEDS: Pantoprazole 40 mg EC Tab PO SCH (10:05)
--- NOTE | 2017-08-29 20:00 | PN ---
DATE: 08/29/2017 SUBJECTIVE: The patient is seen on his bed complaining about still abdominal pain. According to him, he did not have bowel movement for a couple of days. No nausea or vomiting. No fever. No chills. No headache. No dizziness. No chest pain, no palpitations. PHYSICAL EXAMINATION: VITAL SIGNS: Temperature 97.9, pulse 73, blood pressure 109/72, respiratory rate 20. HEENT: Head normocephalic and atraumatic. Eyes, PERRLA. Extraocular muscles intact. Conjunctivae clear. Nose patent. Mucous membranes moist. NECK: Supple. No carotid bruits. No JVD or thyromegaly. CHEST: Bilaterally symmetrical. HEART: S1 and S2 positive. LUNGS: Clear to auscultation. ABDOMEN: Soft. Bowel sounds present. No organomegaly. EXTREMITIES: No edema. No cyanosis. NEUROLOGIC: The patient is awake, alert. Moving all 4 extremities. No focal deficits. MEDICATIONS: Colace started, Dilaudid the patient is getting, and Protonix. LABORATORY DATA: White blood cells 18.4, on admission it was 43.3, hemoglobin 12.2, hematocrit 36.3, platelets 178. Sodium 142, potassium 4.5, BUN 11, creatinine 0.8, alkaline phosphatase 225, TSH 8.32. ASSESSMENT AND PLAN: Mr. Roman Hill a 57 years old male with leukocytosis. We called ID consult, spoke to Dr. Frantz Navarrete, according to her this high white blood cell 43.3 was due to the patient was getting for chemotherapy. Does not look like infectious, so she stopped the IV antibiotics. The patient has iron deficiency, abnormal liver function test, hypothyroidism, came with abdominal pain, metastatic pancreatic cancer, leukocytosis secondary to Neulasta, partial pancreatectomy. Discontinue IV antibiotics, observe off the antibiotics. PT/OT, Oncology followup. Colace given. Still getting pain medications. Reviewed Dr. Navarrete's notes, even discussion done with Dr. Navarrete about the patient's leukocytosis. Reviewed GI notes also, Dr. Kieran Partida. Status post Whipple procedure. Recommended soft, frequent meals as tolerated. Continue with proton pump inhibitor. GI had discussion done with oncology. The patient received Neulasta, his last 2 doses two weeks prior. Now, white blood cells are down trending. CT of the abdomen and pelvis reviewed, multiple hepatic masses, suspicious metastasis, multiple mesenteric lymph nodes. Need good Oncology followup. GI/DVT prophylaxis. Repeat labs. Magui Anguiano MD MTDJose G
[2017-08-30] MEDS: HYDROmorphone 0.5 mg/0.5 ml ISec IVP PRN ×4 (04:05→22:58)
[2017-08-30] MEDS: Pantoprazole 40 mg EC Tab PO SCH (10:10)
--- NOTE | 2017-08-30 21:21 | PN ---
DATE: 08/30/2017 SUBJECTIVE: The patient seen and examined at the bedside, looking comfortable. He is still having abdominal pain. No nausea, vomiting or diarrhea. No hematuria or hematochezia. No headache, no dizziness. No chest pain, no palpitation. PHYSICAL EXAMINATION: VITAL SIGNS: Temperature 98.2, pulse 66, blood pressure 101/57, respiratory rate 20. HEENT: Head normocephalic, atraumatic. Eyes, PERRLA. Extraocular muscles intact. Conjunctivae clear. Nose patent. NECK: Supple. No carotid bruits. No JVD or thyromegaly. CHEST: Bilaterally symmetrical. HEART: S1 and S2 positive. LUNGS: Clear to auscultation. ABDOMEN: Soft. Bowel sounds present. No organomegaly. EXTREMITIES: No edema, no cyanosis. NEUROLOGIC: The patient is awake and alert, moving all 4 extremities. No focal deficits. MEDICATIONS: Colace, Dilaudid, Protonix. LABORATORY DATA: White blood cells 18.4, hemoglobin 12.2, hematocrit 36.3, platelets 178. Sodium 142, potassium 4.5, BUN 11, creatinine 0.8, alkaline phosphatase is 225, TSH 8.32. ASSESSMENT AND PLAN: Mr. Roman Hill a 57 years old male, has leukocytosis. Infectious Disease is on the case Dr. Frantz Navarrete, according to her, his leukocytosis is side effect of chemotherapy, it was 43.3 now trending down and she stopped the IV antibiotics. The patient with abnormal liver function test, hypothyroidism, abdominal pain getting less. The patient has metastatic pancreatic cancer and leukocytosis was due to Neulasta, partial pancreatectomy. Gastrointestinal and deep venous thrombosis prophylaxes. GI is on the case. Colace given for constipation. Repeat labs. We will follow. Magui Anguiano MD
[2017-08-31] MEDS: HYDROmorphone 0.5 mg/0.5 ml ISec IVP PRN ×4 (04:03→22:00)
[2017-08-31 08:51] LABS: HEMOGLOBIN 12.7 g/dL (12.0-18.0); MEAN CELL VOLUME 95.9 fL (80.0-94.0); MEAN CORPUSCULAR HEMOGLOBIN 32.2 pg (27.0-31.0); MEAN CORPUSCULAR HGB CONC 33.6 g/dL (33.0-37.0); RBC 3.93 Mil/uL (4.40-5.90); RED CELL DISTRIBUTION WIDTH 14.3 % (11.5-14.5); WHITE BLOOD COUNT 20.2 K/uL (4.8-10.8)
[2017-08-31 08:58] LABS: BLOOD UREA NITROGEN 14 mg/dL (9-20); CALCIUM 8.7 mg/dl (8.6-10.4); GFR AFRICAN-AMERICAN > 60; GFR NON-AFRICAN AMERICAN > 60
[2017-08-31] MEDS: Pantoprazole 40 mg EC Tab PO SCH (10:02)
[2017-08-31 10:34] VITALS: RESP 20
--- NOTE | 2017-08-31 16:12 | CP.PCM.PN ---
Subjective - Date & Time of Evaluation Date of Evaluation: 08/31/17 Time of Evaluation: 10:00 - Subjective Subjective: pt is seen and examined at bed side looking comfortable , abdominal pain is getting better , tolerated food very well Objective - Vital Signs/Intake and Output Vital Signs (last 24 hours): Temp Pulse Resp BP Pulse Ox 98.1 F 71 20 104/67 98 08/31/17 08:00 08/31/17 08:00 08/31/17 08:00 08/31/17 08:00 08/31/17 08:00 Intake and Output: 08/31/17 08/31/17 06:59 18:59 Intake Total 640 500 Balance 640 500 - Medications Medications: Current Medications Docusate Sodium (Colace) 200 mg PO DAILY [facility] Last Admin: 08/31/17 10:02 Dose: 200 mg Hydromorphone HCl (Dilaudid) 1 mg IVP Q6H PRN PRN Reason: pain Last Admin: 08/31/17 15:59 Dose: 1 mg Pantoprazole Sodium (Protonix Ec Tab) 40 mg PO DAILY [facility] Last Admin: 08/31/17 10:02 Dose: 40 mg - Labs Labs: 08/31/17 08:30 08/31/17 08:30 - Eye Exam Eye Exam: EOMI, Normal appearance, PERRL Pupil Exam: NORMAL ACCOMODATION, PERRL - ENT Exam ENT Exam: Mucous Membranes Moist, Normal Exam, Normal Oropharynx - Neck Exam Neck Exam: Full ROM - Respiratory Exam Respiratory Exam: Clear to Ausculation Bilateral - Cardiovascular Exam Cardiovascular Exam: REGULAR RHYTHM - GI/Abdominal Exam GI & Abdominal Exam: Tenderness, Normal Bowel Sounds - Extremities Exam Extremities Exam: Full ROM, Normal Inspection - Back Exam Back Exam: NORMAL INSPECTION - Neurological Exam Neurological Exam: Alert, CN II-XII Intact, Normal Gait, Oriented x3 - Skin Skin Exam: Intact, Normal Color Assessment and Plan (1) Abdominal pain Status: Acute (2) History of partial pancreatectomy Status: Acute (3) Acute abdomen Status: Acute (4) Alcohol intoxication Status: Acute (5) Anemia Assessment & Plan: cont same treatment , pain management . need good oncology f/u Status: Acute (6) DVT prophylaxis Status: Acute (7) Pancreatic cancer Status: Acute (8) Pancreatic mass Status: Acute
[2017-09-01 00:10] VITALS: TEMP 97.9
[2017-09-01] MEDS: HYDROmorphone 0.5 mg/0.5 ml ISec IVP PRN (04:05)
[2017-09-01 08:12] VITALS: BP 109/73; PULSE 76; O2SAT 97
[2017-09-01] MEDS ORDERED: HYDROmorphone 0.5 mg/0.5 ml ISec IVP ONE (08:45)
[2017-09-01] MEDS: Pantoprazole 40 mg EC Tab PO SCH (09:30)
--- NOTE | 2017-09-01 15:16 | CP.PCM.PN ---
Subjective - Date & Time of Evaluation Date of Evaluation: 09/01/17 Time of Evaluation: 09:00 - Subjective Subjective: alert, orientedx3, ambulatory, no acute distress. Objective - Vital Signs/Intake and Output Vital Signs (last 24 hours): Temp Pulse Resp BP Pulse Ox 97.9 F 76 20 109/73 97 09/01/17 08:10 09/01/17 08:10 09/01/17 08:10 09/01/17 08:10 09/01/17 08:10 Intake and Output: 09/01/17 09/01/17 06:59 18:59 Intake Total 740 300 Balance 740 300 - Labs Labs: 08/31/17 08:30 08/31/17 08:30 Assessment and Plan - Assessment and Plan (Free Text) Assessment: Patient admitted with abdominal pain, leukocytosis, pancreatic cancer, requesting for discharge, seen and examined. Alert and orientedx3, no acute pain or distress. Cleared by DR Navarrete, discussed with DR Anguiano, plan to discharge home today. Advised to follow up with PMD in 1 week.
== END 2017-09-01 09:47 | disposition home or self-care (01) | DRG 398 ==
LOC: C.ER 15:08 → C.9E 19:23 → C.3T 21:58
PROVIDERS: ADMIT Internal Medicine; ATTEND Internal Medicine
DX: D72.829 Elevated white blood cell count, unspecified (principal); C25.0 Malignant neoplasm of head of pancreas; C78.6 Secondary malignant neoplasm of retroperitoneum and peritoneum; C78.7 Secondary malignant neoplasm of liver and intrahepatic bile duct; I11.0 Hypertensive heart disease with heart failure; I50.9 Heart failure, unspecified; D64.9 Anemia, unspecified; F10.129 Alcohol abuse with intoxication, unspecified; E61.1 Iron deficiency; E03.9 Hypothyroidism, unspecified; K59.00 Constipation, unspecified; T45.1X5A Adverse effect of antineoplastic and immunosuppressive drugs, initial encounter; Z87.891 Personal history of nicotine dependence; T45.8X5A Adverse effect of other primarily systemic and hematological agents, initial encounter

== ENCOUNTER 2017-10-22 13:32 | Inpatient (IN) | payer OTHER ==
[2017-10-22 13:33] VITALS: BMI 25.2
--- NOTE | 2017-10-22 14:05 | C.PDOC ---
History Of Present Illness 57yo male w/PMHx of pancreatic adenocarcinoma diagnosed in 11/2015 s/p whipple procedure and presently on chemotherapy that presents c/o abdominal pain, malaise, weight loss, weakness, decrease in appetite. He reported that the pain localizes to the epigastric region with radiation to the right flank and 10/10 in severity associated with nausea and intermittent non-bilious, non-bloody vomiting. He reported that he has had nausea/vomiting that normally lasts 2-3 days since starting chemotherapy however on this particular occasion his symptoms had lasted longer than usual and with greater severity. His last chemotherapy session was reportedly week ago. He also admitted to approximately 6lb weight loss within 2 weeks. Pt denies high fever, chills, headache, dizziness, visual changes, focal deficits, chest pain, palpitations, SOB, cough , denies melena, hematoschezia, hematemesis, UTI sx. Ambulate to ED, appears chr. ill, in pain. Oncologist: Dr. Quan Ivan Time Seen by Provider: 10/22/17 14:00 Chief Complaint (Nursing): Abdominal Pain History Per: Patient Past Medical History Reviewed: Historical Data, Nursing Documentation, Vital Signs Vital Signs: Last Vital Signs Temp 98.1 F 10/22/17 15:40 Pulse 78 10/22/17 15:40 Resp 18 10/22/17 15:40 BP 119/76 10/22/17 15:40 Pulse Ox 98 10/22/17 16:08 - Medical History PMH: CHF, Gastritis, HTN, Malignancy (Pancreatic) Denies: Chronic Kidney Disease Surgical History: Denies: Pacemaker Other Surgeries: Whipple - [facility] Procedures DILATION OF COMMON BILE DUCT WITH INTRALUMINAL DEVICE, ENDO (11/30/15) DRAINAGE OF COMMON BILE DUCT, ENDO (11/30/15) Family History: States: No Known Family Hx - Social History Hx Tobacco Use: No Hx Alcohol Use: No Hx Substance Use: No - Immunization History Hx Tetanus Toxoid Vaccination: No Hx Influenza Vaccination: No Hx Pneumococcal Vaccination: No Review Of Systems Except As Marked, All Systems Reviewed And Found Negative. Constitutional: Positive for: Weakness, Malaise, Weight loss. Negative for: Fever, Chills Eyes: Negative for: Vision Change, Conjunctivae Inflammation ENT: Negative for: Ear Discharge, Nose Discharge, Throat Pain Cardiovascular: Negative for: Chest Pain, Palpitations, Edema, Light Headedness Respiratory: Negative for: Cough, Shortness of Breath Gastrointestinal: Positive for: Nausea, Vomiting, Abdominal Pain. Negative for : Diarrhea, Constipation, Melena, Hematochezia, Hematemesis Genitourinary: Negative for: Dysuria, Incontinence Musculoskeletal: Negative for: Neck Pain, Back Pain Skin: Negative for: Rash Neurological: Negative for: Altered Mental Status, Headache, Dizziness Physical Exam - Physical Exam Appears: Well, Non-toxic, Chronically Ill, Other (cachectic) Skin: Normal Color, Warm, Dry Eye(s): bilateral: PERRL Nose: No Flaring, No Discharge Oral Mucosa: Moist Throat: No Drooling Neck: Trachea Midline, Supple Cardiovascular: Rhythm Regular, No Murmur, No JVD Respiratory: No Decreased Breath Sounds, No Accessory Muscle Use, No Stridor, No Wheezing Gastrointestinal/Abdominal: Soft, Tenderness (diffuse), No Distention, No Guarding, No Rebound Back: No CVA Tenderness Extremity: Normal ROM, No Pedal Edema, No Deformity, No Swelling Neurological/Psych: Oriented x3, Normal Speech ED Course And Treatment - Laboratory Results Result Diagrams: 10/22/17 14:48 10/22/17 14:48 Lab Interpretation: Abnormal ECG: Interpreted By Me, Viewed By Me ECG Rhythm: Sinus Rhythm Interpretation Of ECG: SR@77/min, NAD, no aucte T wave or ST--T changes. O2 Sat by Pulse Oximetry: 98 Pulse Ox Interpretation: Normal - Radiology CXR: Interpreted by Me, Read By Radiologist CXR Interpretation: Yes: No Acute Disease - Other Rad Abd, obstructive X-Ray: Read By Radiologist Interpretation: IMPRESSION: Constipation. Nonobstructive bowel gas pattern. Progress Note: Pt remained unchanged during the ED evaluation. Afebrile, hemodynamicaly stable. Blood work review, abnormal. Case discussed with , hem-onc, reports, "pt refused scheduled chemo today, was saying feels very bad, N/V", and admission recommend. Case discussed with and admission arranged to med/surg with Dx: Dehydration, diffuse abd. pain, N/V , Hx of met pancreactic adenoma. Disposition - Disposition Disposition: HOSPITALIZED Disposition Time: 15:55 Condition: STABLE - Clinical Impression Clinical Impression: Abdominal pain, Metastatic adenocarcinoma to pancreas, Dehydration, Anemia
[2017-10-22] MEDS ORDERED: Sodium Chloride 0.9% 1,000 ML IV ONE ×2 (14:18→16:09)
[2017-10-22] MEDS ORDERED: HYDROmorphone 1 mg/ml ISec IVP STA (14:27)
--- NOTE | 2017-10-22 14:45 | RAD ---
HISTORY: COMPARISON: No prior. TECHNIQUE: Chest PA and lateral FINDINGS: LINES AND TUBES: The right MediPort terminates at the cavoatrial junction. LUNG AND PLEURA: The lungs are well inflated and clear. No pleural effusion or pneumothorax. HEART AND MEDIASTINUM: The heart is not enlarged. The hilar and mediastinal contours are within normal limits. SKELETAL STRUCTURES: The bony structures are within normal limits for the patient's age. VISUALIZED UPPER ABDOMEN: Normal. OTHER FINDINGS: None. IMPRESSION: No active pulmonary disease.
--- NOTE | 2017-10-22 14:47 | RAD ---
Date of service: 10/22/2017 HISTORY: Abdominal pain COMPARISON: 12/05/2015. FINDINGS: BOWEL: There is large amount of stool in the colon and rectum. The bowel gas pattern is nonspecific. BONES: Normal. OTHER FINDINGS: None. IMPRESSION: Constipation. Nonobstructive bowel gas pattern.
[2017-10-22 15:08] LABS: BASO % 0.2 % (0.0-2.0); EOS % 0.1 % (0.0-4.0); LYMPH # 0.3 K/uL (1.0-4.3); LYMPH % 5.1 % (20.0-40.0); MEAN CORPUSCULAR HEMOGLOBIN 29.2 pg (27.0-31.0); MEAN CORPUSCULAR HGB CONC 33.8 g/dL (33.0-37.0); MEAN PLATELET VOLUME 8.4 fL (7.2-11.7); MONO # 0.8 K/uL (0.0-0.8); MONO % 12.4 % (0.0-10.0); NEUT # 5.5 K/uL (1.8-7.0); NEUT % 82.2 % (50.0-75.0); RBC 3.32 Mil/uL (4.40-5.90); RED CELL DISTRIBUTION WIDTH 16.2 % (11.5-14.5)
[2017-10-22 15:11] LABS: HEMOGLOBIN 9.7 g/dL (12.0-18.0); MEAN CELL VOLUME 86.3 fL (80.0-94.0); PLATELET COUNT 525 K/uL (130-400); WHITE BLOOD COUNT 6.6 K/uL (4.8-10.8)
[2017-10-22 15:15] LABS: INR 1.4; PROTHROMBIN TIME 15.2 SECONDS (9.7-12.2)
[2017-10-22] MEDS ORDERED: Sodium Chloride 0.9% 1,000 ML ONE ×2 (15:22→15:23)
[2017-10-22 15:38] LABS: ANISOCYTOSIS SLIGHT; EOSINOPHIL 1 % (0-4); HYPOCHROMIC SLIGHT; LYMPHOCYTE 6 % (20-40); MONOCYTE 12 % (0-10); NEUTROPHIL 81 % (50-75); PLATELET ESTIMATE INCREASED (NORMAL); POIKILOCYTOSIS SLIGHT; TOTAL CELLS COUNTED 100
[2017-10-22 15:39] LABS: BURR CELLS SLIGHT; LARGE PLATELETS PRESENT
[2017-10-22 16:03] LABS: BLOOD UREA NITROGEN 9 mg/dL (9-20); GFR AFRICAN-AMERICAN > 60; GFR NON-AFRICAN AMERICAN > 60
[2017-10-22 16:04] LABS: ALBUMIN 3.6 g/dL (3.5-5.0); ALT/SGPT 122 U/L (21-72); AST/SGOT 93 U/L (17-59); CALCIUM 8.6 mg/dl (8.6-10.4); LIPASE < 10 U/L (23-300)
[2017-10-22] MEDS ORDERED: Bisacodyl 5mg EC Tab PO ONE (16:05)
--- NOTE | 2017-10-22 16:44 | CP.PCM.PN ---
Subjective - Date & Time of Evaluation Date of Evaluation: 10/22/17 Time of Evaluation: 16:30 - Subjective Subjective: PGY2 Progress Note for Dr. Rahman Patient is a 57yo male with past medical history of pancreatic adenocarcinoma diagnosed in 11/2015 s/p whipple procedure and presently on chemotherapy that presents c/o abdominal pain. Patient says that his last chemotherapy was 3 weeks ago. Patient says his pain is 10/10. He denies any associated nausea or vomiting. Patient takes Ultram 50mg up to six times per day which he says helps. Patient says he has been eating very little and has lost about 15 lbs in the past 2 months. Patient says he has little appetite and often forgets to take his Dronabinol. Currently patient is complaining of generalized abdominal pain. He says his last bowel movement was 3 days ago. Patient denies any headache, chest pain, nausea, or vomiting. Allergies: NKDA PMHx: pancreatic adenocarcinoma Psurg: portacath, whipple procedure, right inguinal hernia repair Social hx: former tobacco use 20-25pack years, no alcohol or drugs Onc: Dr. Karena Ivan Objective - Vital Signs/Intake and Output Vital Signs (last 24 hours): Temp Pulse Resp BP Pulse Ox 98.1 F 78 18 119/76 98 10/22/17 15:40 10/22/17 15:40 10/22/17 15:40 10/22/17 15:40 10/22/17 16:08 - Medications Medications: Current Medications Dronabinol (Marinol) 2.5 mg PO BID [facility] Sodium Chloride (Sodium Chloride 0.9%) 1,000 mls @ 1,000 mls/hr IV .Q1H ONE Stop: 10/22/17 17:08 Lactulose (Enulose) 20 gm PO TID [facility] Morphine Sulfate (Morphine) 2 mg IVP Q4 PRN PRN Reason: Pain, severe (8-10) Tramadol HCl (Ultram) 50 mg PO Q6 [facility] Zolpidem Tartrate (Ambien) 5 mg PO HS PRN PRN Reason: Insomnia - Labs Labs: 10/22/17 14:48 10/22/17 14:48 PT 15.2 SECONDS (9.7-12.2) H 10/22/17 14:48 INR 1.4 10/22/17 14:48 APTT 27 SECONDS (21-34) 10/22/17 14:48 - Constitutional Appears: Non-toxic, No Acute Distress, Older Than Stated Age, Cachectic, Chronically Ill - Head Exam Head Exam: ATRAUMATIC, NORMAL INSPECTION, NORMOCEPHALIC - Eye Exam Eye Exam: EOMI, Normal appearance - ENT Exam ENT Exam: Mucous Membranes Moist - Respiratory Exam Respiratory Exam: Clear to Ausculation Bilateral, NORMAL BREATHING PATTERN - Cardiovascular Exam Cardiovascular Exam: REGULAR RHYTHM, RRR, +S1, +S2 - GI/Abdominal Exam GI & Abdominal Exam: Soft, Tenderness. absent: Distended, Firm - Extremities Exam Extremities Exam: Normal Inspection. absent: Pedal Edema - Back Exam Back Exam: NORMAL INSPECTION - Neurological Exam Neurological Exam: Alert, Awake, Oriented x3 - Psychiatric Exam Psychiatric exam: Normal Affect, Normal Mood - Skin Skin Exam: Intact, Normal Color, Warm Assessment and Plan - Assessment and Plan (Free Text) Assessment: Pancreatic Adenocarcinoma pain management: Tramadol 50mg q6h Morphine 2mg ivp q4h prn Cachexia continue home med: Dronabinol 2.5mg po BID NS at 75cc/hr Constipation as seen on abd xray Enulose 20mg po TID Insomnia Ambien 5mg po HS prn Prophylaxis SCDs Pepcid 20mg po daily Discussed with Dr. Rahman
[2017-10-22] MEDS: Sodium Chloride 0.9% 1,000 ML IV SCH (19:05)
[2017-10-22] MEDS ORDERED: Pneumococcal 23-Valent Vaccine IM ONE (19:44)
[2017-10-23] MEDS: Sodium Chloride 0.9% 1,000 ML IV SCH ×3 (07:00→19:40)
--- NOTE | 2017-10-23 07:47 | CP.PCM.PN ---
Subjective - Date & Time of Evaluation Date of Evaluation: 10/23/17 Time of Evaluation: 07:46 - Subjective Subjective: PGY 2 Med Progress Note-Dr. Rahman's service Patient seen and examined in no acute distress. Patient denies complaints. Is ambulating though with discomfort. Patient denies subjective fevers or chills, nausea, vomiting, diarrhea at this time. Objective - Vital Signs/Intake and Output Vital Signs (last 24 hours): Temp Pulse Resp BP Pulse Ox 98.7 F 80 20 116/74 99 10/22/17 23:43 10/22/17 23:43 10/22/17 23:43 10/22/17 23:43 10/22/17 23:43 Intake and Output: 10/23/17 10/23/17 06:59 18:59 Intake Total 500 Balance 500 - Medications Medications: Current Medications Dronabinol (Marinol) 2.5 mg PO BID [facility] Last Admin: 10/22/17 18:47 Dose: 2.5 mg Famotidine (Pepcid) 20 mg PO DAILY [facility] Sodium Chloride (Sodium Chloride 0.9%) 1,000 mls @ 75 mls/hr IV .[id number] [facility] Last Admin: 10/23/17 07:00 Dose: Not Given Lactulose (Enulose) 20 gm PO TID [facility] Last Admin: 10/22/17 18:48 Dose: 20 gm Morphine Sulfate (Morphine) 2 mg IVP Q4 PRN PRN Reason: Pain, severe (8-10) Last Admin: 10/23/17 07:10 Dose: 2 mg Tramadol HCl (Ultram) 50 mg PO Q6 [facility] Last Admin: 10/23/17 05:35 Dose: 50 mg Zolpidem Tartrate (Ambien) 5 mg PO HS PRN PRN Reason: Insomnia - Labs Labs: 10/22/17 14:48 10/22/17 14:48 PT 15.2 SECONDS (9.7-12.2) H 10/22/17 14:48 INR 1.4 10/22/17 14:48 APTT 27 SECONDS (21-34) 10/22/17 14:48 - Head Exam Head Exam: ATRAUMATIC, NORMAL INSPECTION, NORMOCEPHALIC - Eye Exam Eye Exam: EOMI, Normal appearance, PERRL Pupil Exam: NORMAL ACCOMODATION - ENT Exam ENT Exam: Mucous Membranes Moist, Normal Exam - Respiratory Exam Respiratory Exam: Clear to Ausculation Bilateral, NORMAL BREATHING PATTERN. absent: Prolonged Expiratory Phase, Respiratory Distress - Cardiovascular Exam Cardiovascular Exam: REGULAR RHYTHM, +S1, +S2 - GI/Abdominal Exam GI & Abdominal Exam: Soft, Normal Bowel Sounds. absent: Rigid, Hyperactive Bowel Sounds - Extremities Exam Extremities Exam: Full ROM, Normal Inspection. absent: Pedal Edema - Back Exam Back Exam: NORMAL INSPECTION. absent: CVA tenderness (R), paraspinal tenderness - Neurological Exam Neurological Exam: Alert, Awake, CN II-XII Intact - Psychiatric Exam Psychiatric exam: Normal Affect, Normal Mood - Skin Skin Exam: Dry, Intact, Normal Color Assessment and Plan - Assessment and Plan (Free Text) Plan: Pancreatic Adenocarcinoma pain management: Tramadol 50mg q6h Morphine 3mg ivp q4h prn Palliative consulted. Help appreciated Cachexia continue home med: Dronabinol 2.5mg po BID NS at 75cc/hr Constipation as seen on abd xray Enulose 20mg po TID Insomnia Ambien 5mg po HS prn Prophylaxis Heparin 5000 units q12 Pepcid 20mg po daily All management per Dr. Rahman
[2017-10-23 08:14] LABS: URINE BILIRUBIN NEGATIVE (NEGATIVE); URINE BLOOD NEGATIVE (NEGATIVE); URINE CLARITY Clear (Clear); URINE COLOR Yellow (YELLOW); URINE GLUCOSE (UA) NORMAL (Normal); URINE LEUKOCYTE ESTERASE NEG Leu/uL (Negative); URINE PROTEIN NEGATIVE (NEGATIVE)
[2017-10-24 01:23] VITALS: RESP 20
--- NOTE | 2017-10-24 06:58 | CP.PCM.PN ---
Subjective - Date & Time of Evaluation Date of Evaluation: 10/24/17 Time of Evaluation: 06:58 - Subjective Subjective: PGY 2 Med Progress Note-Dr. Rahman's service Patient seen and examined in no acute distress. Patient denies complaints. Is ambulating though with discomfort. Patient denies subjective fevers or chills, nausea, vomiting, diarrhea at this time. Objective - Vital Signs/Intake and Output Vital Signs (last 24 hours): Temp Pulse Resp BP Pulse Ox 98.0 F 87 20 116/76 99 10/24/17 00:00 10/24/17 00:00 10/24/17 00:00 10/24/17 00:00 10/24/17 00:00 Intake and Output: 10/23/17 10/24/17 18:59 06:59 Intake Total 930 1560 Output Total 1100 Balance -170 1560 - Medications Medications: Current Medications Dronabinol (Marinol) 2.5 mg PO BID [facility] Last Admin: 10/23/17 18:07 Dose: 2.5 mg Famotidine (Pepcid) 20 mg PO DAILY [facility] Last Admin: 10/23/17 09:21 Dose: 20 mg Heparin Sodium (Porcine) (Heparin) 5,000 units SC Q12 [facility] Last Admin: 10/23/17 22:25 Dose: 5,000 units Sodium Chloride (Sodium Chloride 0.9%) 1,000 mls @ 75 mls/hr IV .[id number] [facility] Last Admin: 10/23/17 19:40 Dose: Not Given Lactulose (Enulose) 20 gm PO TID [facility] Last Admin: 10/23/17 18:03 Dose: Not Given Morphine Sulfate (Morphine) 3 mg IVP Q4 PRN PRN Reason: Pain, severe (8-10) Last Admin: 10/24/17 03:25 Dose: 3 mg Tramadol HCl (Ultram) 50 mg PO Q6 [facility] Last Admin: 10/24/17 05:55 Dose: 50 mg Zolpidem Tartrate (Ambien) 5 mg PO HS PRN PRN Reason: Insomnia - Labs Labs: 10/22/17 14:48 10/22/17 14:48 PT 15.2 SECONDS (9.7-12.2) H 10/22/17 14:48 INR 1.4 10/22/17 14:48 APTT 27 SECONDS (21-34) 10/22/17 14:48 - Head Exam Head Exam: ATRAUMATIC, NORMAL INSPECTION - Eye Exam Eye Exam: EOMI, Normal appearance, PERRL Pupil Exam: NORMAL ACCOMODATION - ENT Exam ENT Exam: Mucous Membranes Moist, Normal Oropharynx - Respiratory Exam Respiratory Exam: Clear to Ausculation Bilateral, NORMAL BREATHING PATTERN. absent: Chest Wall Tenderness, Prolonged Expiratory Phase - Cardiovascular Exam Cardiovascular Exam: REGULAR RHYTHM, +S1, +S2 - GI/Abdominal Exam GI & Abdominal Exam: Soft, Normal Bowel Sounds - Extremities Exam Extremities Exam: Full ROM. absent: Pedal Edema - Neurological Exam Neurological Exam: Alert, Awake, CN II-XII Intact, Oriented x3 - Psychiatric Exam Psychiatric exam: Normal Affect, Normal Mood - Skin Skin Exam: Dry, Intact Assessment and Plan - Assessment and Plan (Free Text) Plan: Pancreatic Adenocarcinoma pain management: Tramadol 50mg q6h Morphine 3mg ivp q4h prn Palliative consulted. Help appreciated Cachexia continue home med: Dronabinol 2.5mg po BID NS at 75cc/hr Constipation as seen on abd xray Enulose 20mg po TID Fleet enema given. Insomnia Ambien 5mg po HS prn Prophylaxis Heparin 5000 units q12 Pepcid 20mg po daily All management per Dr. Rahman
[2017-10-24 07:04] LABS: BASO % 0.4 % (0.0-2.0); EOS % 0.1 % (0.0-4.0); HEMOGLOBIN 8.4 g/dL (12.0-18.0); LYMPH # 0.4 K/uL (1.0-4.3); LYMPH % 4.8 % (20.0-40.0); MEAN CELL VOLUME 84.9 fL (80.0-94.0); MEAN CORPUSCULAR HEMOGLOBIN 29.6 pg (27.0-31.0); MEAN CORPUSCULAR HGB CONC 34.9 g/dL (33.0-37.0); MEAN PLATELET VOLUME 7.4 fL (7.2-11.7); MONO # 1.3 K/uL (0.0-0.8); MONO % 13.5 % (0.0-10.0); NEUT # 7.6 K/uL (1.8-7.0); NEUT % 81.2 % (50.0-75.0); PLATELET COUNT 465 K/uL (130-400); RBC 2.83 Mil/uL (4.40-5.90); RED CELL DISTRIBUTION WIDTH 16.1 % (11.5-14.5); WHITE BLOOD COUNT 9.4 K/uL (4.8-10.8)
[2017-10-24 07:28] LABS: ALT/SGPT 90 U/L (21-72); AST/SGOT 50 U/L (17-59); BLOOD UREA NITROGEN 4 mg/dL (9-20); CALCIUM 8.1 mg/dl (8.6-10.4); GFR AFRICAN-AMERICAN > 60; GFR NON-AFRICAN AMERICAN > 60
[2017-10-24] MEDS: Morphine 4 MG/ML VIAL IVP PRN ×3 (07:42→20:30)
--- NOTE | 2017-10-24 08:28 | HP ---
Copied To: Genesis Rahman MD Attending MD: Genesis Rahman MD HISTORY OF PRESENT ILLNESS: Roman Hill is a 57-year-old male history of cancer, kidney disease, chief complaint of pain. The patient came to the ER, advised admission. PHYSICAL EXAMINATION: GENERAL: The patient is awake and alert. VITAL SIGNS: Temperature 98, pulse 96. HEENT: Within normal limits. NECK: Supple. CHEST: Symmetrical. HEART: Regular. ABDOMEN: Soft. EXTREMITIES: No edema. ASSESSMENT AND PLAN: Patient suffers from pain, cancer, kidney disease. The patient to get pain analgesia, supportive care, palliative care. Genesis Rahman MD
[2017-10-24 08:49] LABS: ANISOCYTOSIS SLIGHT; LYMPHOCYTE 3 % (20-40); MONOCYTE 11 % (0-10); NEUTROPHIL 85 % (50-75); PLATELET ESTIMATE SLIGHTLY INCREASED (NORMAL); REACTIVE LYMPHOCYTES 1 % (0-0); TOTAL CELLS COUNTED 100
[2017-10-24 08:50] LABS: HYPOCHROMIC SLIGHT
[2017-10-24] MEDS: Sodium Chloride 0.9% 1,000 ML IV SCH (10:45)
[2017-10-25] MEDS: Morphine 4 MG/ML VIAL IVP PRN ×5 (01:40→21:40)
[2017-10-25] MEDS: Sodium Chloride 0.9% 1,000 ML IV SCH (11:40)
[2017-10-26] MEDS: Sodium Chloride 0.9% 1,000 ML IV SCH
[2017-10-26] MEDS: Morphine 4 MG/ML VIAL IVP PRN ×5 (03:00→20:08)
--- NOTE | 2017-10-26 20:06 | PN ---
Copied To: Genesis Rahman MD Attending MD: Genesis Rahman MD DATE: 10/26/2017 The patient is complaining of pain. Supportive care. Genesis Rahman MD
--- NOTE | 2017-10-26 23:55 | CARD ---
APPROVED REPORT Date of service: 10/22/2017 EKG Measurement Heart [id number] <Conclusion> Normal sinus rhythm Normal ECG
[2017-10-27] MEDS: Morphine 4 MG/ML VIAL IVP PRN ×6 (00:07→21:36)
--- NOTE | 2017-10-27 08:45 | CP.PCM.PN ---
Subjective - Date & Time of Evaluation Date of Evaluation: 10/27/17 Time of Evaluation: 07:25 - Subjective Subjective: PGY3 Progress Note-Dr. Rahman's service Patient seen and examined in no acute distress. Patient denies complaints. He is tolerating his diet. Patient spoke with [facility]) and would like to be discharged in 1-2 days. His sister will travel with him to [facility], where he wishes to be. 12-point ROS otherwise negative. Patient denies subjective fevers or chills, nausea, vomiting, diarrhea at this time. Objective - Vital Signs/Intake and Output Vital Signs (last 24 hours): Temp Pulse Resp BP Pulse Ox 98 F 86 20 113/72 98 10/27/17 00:00 10/27/17 00:00 10/27/17 00:00 10/27/17 00:00 10/27/17 00:00 Intake and Output: 10/27/17 10/27/17 06:59 18:59 Intake Total 1940 Output Total 400 Balance 1540 - Medications Medications: Current Medications Dronabinol (Marinol) 2.5 mg PO BID [facility] Last Admin: 10/26/17 17:29 Dose: 2.5 mg Famotidine (Pepcid) 20 mg PO DAILY [facility] Last Admin: 10/26/17 09:18 Dose: 20 mg Sodium Chloride (Sodium Chloride 0.9%) 1,000 mls @ 75 mls/hr IV .[id number] [facility] Lactulose (Enulose) 20 gm PO TID [facility] Last Admin: 10/26/17 17:29 Dose: 20 gm Morphine Sulfate (Morphine) 3 mg IVP Q4 PRN PRN Reason: Pain, severe (8-10) Last Admin: 10/27/17 04:03 Dose: 3 mg Tramadol HCl (Ultram) 50 mg PO Q6 [facility] Last Admin: 10/27/17 05:20 Dose: 50 mg Zolpidem Tartrate (Ambien) 5 mg PO HS PRN PRN Reason: Insomnia - Labs Labs: 10/24/17 06:59 10/24/17 06:59 PT 15.2 SECONDS (9.7-12.2) H 10/22/17 14:48 INR 1.4 10/22/17 14:48 APTT 27 SECONDS (21-34) 10/22/17 14:48 - Additional Findings Additional findings: - Head Exam Head Exam: ATRAUMATIC, NORMAL INSPECTION - Eye Exam Eye Exam: EOMI, Normal appearance, PERRL Pupil Exam: NORMAL ACCOMODATION - ENT Exam ENT Exam: Mucous Membranes Moist, Normal Oropharynx - Respiratory Exam Respiratory Exam: Clear to Ausculation Bilateral, NORMAL BREATHING PATTERN. absent: Chest Wall Tenderness, Prolonged Expiratory Phase - Cardiovascular Exam Cardiovascular Exam: REGULAR RHYTHM, +S1, +S2 - GI/Abdominal Exam GI & Abdominal Exam: Soft, Normal Bowel Sounds - Extremities Exam Extremities Exam: Full ROM. absent: Pedal Edema - Neurological Exam Neurological Exam: Alert, Awake, CN II-XII Intact, Oriented x3 - Psychiatric Exam Psychiatric exam: Normal Affect, Normal Mood - Skin Skin Exam: Dry, Intact Assessment and Plan - Assessment and Plan (Free Text) Assessment: Pancreatic Adenocarcinoma 10/27: Patient spoke with [facility] ([facility]) and would like to be discharged in 1- 2 days. His sister will travel with him to [facility], where he wishes to be. pain management Tramadol 50mg q6h Morphine 3mg ivp q4h prn Palliative consulted. Help appreciated Cachexia continue home med: Dronabinol 2.5mg po BID NS at 75cc/hr Constipation as seen on abd xray Enulose 20mg po TID Fleet enema given. Insomnia Ambien 5mg po HS prn Prophylaxis Heparin 5000 units q12 Pepcid 20mg po daily Disposition: Patient spoke with [facility] ([facility]) and would like to be discharged in 1-2 days. His sister will travel with him to [facility], where he wishes to be. All management per Dr. Rahman
[2017-10-27] MEDS: Sodium Chloride 0.9% 1,000 ML IV SCH ×2 (09:41→23:10)
[2017-10-27 12:02] LABS: BASO % 0.1 % (0.0-2.0); HEMOGLOBIN 8.1 g/dL (12.0-18.0); LYMPH # 0.3 K/uL (1.0-4.3); MEAN CELL VOLUME 84.6 fL (80.0-94.0); MEAN CORPUSCULAR HEMOGLOBIN 29.3 pg (27.0-31.0); MEAN CORPUSCULAR HGB CONC 34.6 g/dL (33.0-37.0); MEAN PLATELET VOLUME 8.4 fL (7.2-11.7); MONO # 1.2 K/uL (0.0-0.8); MONO % 10.6 % (0.0-10.0); NEUT # 9.5 K/uL (1.8-7.0); NEUT % 86.3 % (50.0-75.0); PLATELET COUNT 378 K/uL (130-400); RBC 2.75 Mil/uL (4.40-5.90); RED CELL DISTRIBUTION WIDTH 16.9 % (11.5-14.5)
[2017-10-27 12:43] LABS: ANISOCYTOSIS SLIGHT; HYPOCHROMIC SLIGHT; LYMPHOCYTE 2 % (20-40); MONOCYTE 9 % (0-10); NEUTROPHIL 89 % (50-75); PLATELET ESTIMATE NORMAL (NORMAL); POIKILOCYTOSIS SLIGHT; TOTAL CELLS COUNTED 100
[2017-10-27 12:44] LABS: TARGET CELLS SLIGHT
--- NOTE | 2017-10-27 12:54 | CP.PCM.CON ---
History of Present Illness - History of Present Illness History of Present Illness: Palliative consult requested by Doctor Restrepo for goals of care discussion. Patient is a 57 yo male, admitted from home with abdominal pain, malaise, decreases appetite and unwanted weight loss of 6 lb over last 2 weeks. Patient reported that he usually had nausea for 2-3 days after his chemo Tx, but this time symptoms are more severe and are lasting longer. Last chemo Tx was last week. Pain is epigastric, radiating to Right flank, intensity 10/10, responds to pain meds for few hours only. Ammonia level on admission was 73. lactulose PO started. Abdominal X Ray was negative SBO, but suggested fecal retention. Pain controled with Morphine IV PRN and Ultram PO scheduled doses. PMH: pancreatic adenocarcinoma, S/P Whipple procedure 12/05/2015, On chemo Tx, Oncologist Doctor Quan Ivan Soc. Hx: single, lives with daughter, son in [place], family in [facility]. Hx: denied by patient, parents alive Review of Systems - Constitutional Constitutional: Fatigue, Weight Loss - EENT Eyes: absent: As Per HPI, Blind Spots, Blurred Vision, Change in Vision, Decreased Night Vision, Diplopia, Discharge, Dry Eye, Exophthalmos, Floaters, Irritation, Itchy Eyes, Loss of Peripheral Vision, Pain, Photophobia, Requires Corrective Lenses, Sees Flashes, Spots in Vision, Tunnel Vision, Other Visual Disturbances, Loss of Vision, Other Ears: absent: As Per HPI, Decreased Hearing, Ear Discharge, Ear Pain, Tinnitus, Abnormal Hearing, Disequilibrium, Dizziness, Other Nose/Mouth/Throat: absent: As Per HPI, Epistaxis, Nasal Congestion, Nasal Discharge, Nasal Obstruction, Nasal Trauma, Nose Pain, Post Nasal Drip, Sinus Pain, Sinus Pressure, Bleeding Gums, Change in Voice, Dental Pain, Dry Mouth, Dysphagia, Halitosis, Hoarsness, Lip Swelling, Mouth Lesions, Mouth Pain, Odynophagia, Sore Throat, Throat Swelling, Tongue Swelling, Facial Pain, Neck Pain, Neck Mass, Other - Cardiovascular Cardiovascular: absent: As Per HPI, Acrocyanosis, Chest Pain, Chest Pain at Rest , Chest Pain with Activity, Claudication, Diaphoresis, Dyspnea, Dyspnea on Exertion, Edema, Irregular Heart Rhythm, Pain Radiating to Arm/Neck/Jaw, Leg Edema, Leg Ulcers, Lightheadedness, Orthopnea, Palpitations, Paroxysmal Nocturnal Dyspnea, Pedal Edema, Radiating Pain, Rapid Heart Rate, Slow Heart Rate, Syncope, Other - Respiratory Respiratory: absent: As Per HPI, Cough, Dyspnea, Hemoptysis, Dyspnea on Exertion , Wheezing, Snoring, Stridor, Pain on Inspiration, Chest Congestion, Excessive Mucous Production, Change in Mucous Color, Pain with Coughing, Other - Gastrointestinal Gastrointestinal: Abdominal Pain - Genitourinary Genitourinary: absent: As Per HPI, Change in Urinary Stream, Difficulty Urinating, Dysuria, Flank Pain, Hematuria, Pyuria, Nocturia, Urinary Incontinence, Urinary Frequency, Urinary Hesitance, Urinary Urgency, Voiding Freq/Small Amts, Freq UTI, Hx Renal/Bladder Calculi, Hx /Renal Surgery, Bladder Distension, Other - Musculoskeletal Musculoskeletal: absent: As Per HPI, Abnormal Gait, Arthralgias, Atrophy, Back Pain, Deformity, Joint Swelling, Limited Range of Motion, Loss of Height, Muscle Cramps, Muscle Weakness, Myalgias, Neck Pain, Numbness, Radiating Pain into Limb, Stiffness, Tingling, Other - Integumentary Integumentary: absent: As Per HPI, Acne, Alopecia, Bleeding Lesions, Change in Hair, Change in Nails, Change in Pigmentation, Changing Lesions, Dry Skin, Erythema, Furuncle, Hirsutism, Lesions, New Lesions, Non-Healing Lesions, Photosensitivity, Pruritus, Rash, Skin Pain, Skin Ulcer, Sores, Striae, Swelling , Unusual Bruising, Wounds, Jaundice, Other - Neurological Neurological: absent: As Per HPI, Abnormal Gait, Abnormal Hearing, Abnormal Movements, Abnormal Speech, Behavioral Changes, Burning Sensations, Confusion, Convulsions, Disequilibrium, Dizziness, Numbness, Focal Weakness, Frequent Falls , Headaches, Lack of Coordination, Loss of Vision, Memory Loss, Paresthesias, Radicular Pain, Restless Legs, Sensory Deficit, Syncope, Tingling, Tremor, Vertigo, Weakness, Other Visual Disturbances, Other - Psychiatric Psychiatric: Anxiety, Depression, Hopelessness - Endocrine Endocrine: absent: As Per HPI, Change in Body Appearance, Change in Libido, Cold Intolorance, Deepening of Voice, Excessive Sweating, Fatigue, Flushing, Heat Intolorance, Increase in Ring/Shoe/Hat Size, Palpitations, Polydipsia, Polyphagia, Polyuria, Other - Hematologic/Lymphatic Hematologic: absent: As Per HPI, Easy Bleeding, Easy Bruising, Lymphadenopathy, Other Past Patient History - Past Medical History & Family History Past Medical History?: Yes - Past Social History Smoking Status: Never Smoked - CARDIAC Hx Congestive Heart Failure: Yes Hx Hypertension: Yes - PULMONARY Hx Respiratory Disorders: No - NEUROLOGICAL Hx Neurological Disorder: No - HEENT Hx HEENT Problems: No - RENAL Hx Chronic Kidney Disease: No - ENDOCRINE/METABOLIC Hx Endocrine Disorders: No - HEMATOLOGICAL/ONCOLOGICAL Hx Blood Disorders: Yes Hx Cancer: Yes (Pancreas, Liver mets) Hx Chemotherapy: Yes - INTEGUMENTARY Hx Dermatological Problems: No - MUSCULOSKELETAL/RHEUMATOLOGICAL Hx Falls: No - GASTROINTESTINAL Hx Gastritis: Yes - GENITOURINARY/GYNECOLOGICAL Hx Genitourinary Disorders: No - PSYCHIATRIC Hx Substance Use: No - SURGICAL HISTORY Hx Surgeries: Yes Hx Herniorrhaphy: Yes Other/Comment: Pancreatectomy/Whipple procedure, Gastojejunostomy 2016 - ANESTHESIA Hx Anesthesia: Yes Hx Anesthesia Reactions: No Hx Malignant Hyperthermia: No Meds Allergies/Adverse Reactions: Allergies Allergy/AdvReac Type Severity Reaction Status Date / Time No Known Allergies Allergy Verified 02/01/16 09:23 - Medications Medications: Current Medications Dronabinol (Marinol) 2.5 mg PO BID [facility] Last Admin: 10/27/17 09:40 Dose: 2.5 mg Famotidine (Pepcid) 20 mg PO DAILY [facility] Last Admin: 10/27/17 09:40 Dose: 20 mg Sodium Chloride (Sodium Chloride 0.9%) 1,000 mls @ 75 mls/hr IV .[id number] [facility] Last Admin: 10/27/17 09:41 Dose: Not Given Lactulose (Enulose) 20 gm PO TID [facility] Last Admin: 10/27/17 09:40 Dose: 20 gm Morphine Sulfate (Morphine) 3 mg IVP Q4 PRN PRN Reason: Pain, severe (8-10) Last Admin: 10/27/17 08:50 Dose: 3 mg Tramadol HCl (Ultram) 50 mg PO Q6 [facility] Last Admin: 10/27/17 12:13 Dose: 50 mg Zolpidem Tartrate (Ambien) 5 mg PO HS PRN PRN Reason: Insomnia Physical Exam - Constitutional Appears: Chronically Ill - Head Exam Head Exam: ATRAUMATIC, NORMAL INSPECTION, NORMOCEPHALIC - Eye Exam Eye Exam: EOMI, Normal appearance, PERRL Pupil Exam: NORMAL ACCOMODATION, PERRL - ENT Exam ENT Exam: Mucous Membranes Moist, Normal Exam - Neck Exam Neck exam: Positive for: Normal Inspection - Respiratory Exam Respiratory Exam: Decreased Breath Sounds, Clear to Auscultation Bilateral, NORMAL BREATHING PATTERN - Cardiovascular Exam Cardiovascular Exam: Tachycardia - GI/Abdominal Exam GI & Abdominal Exam: Normal Bowel Sounds, Tenderness - Rectal Exam Rectal Exam: Deferred - Exam Exam: NORMAL INSPECTION - Extremities Exam Extremities exam: Positive for: normal inspection - Back Exam Back exam: NORMAL INSPECTION - Neurological Exam Neurological exam: Alert, CN II-XII Intact, Oriented x3, Reflexes Normal - Psychiatric Exam Psychiatric exam: Anxious, Depressed - Skin Skin Exam: Dry, Intact, Pallor Results - Vital Signs Recent Vital Signs: Last Vital Signs Temp 98.5 F 10/27/17 08:00 Pulse 102 H 10/27/17 08:00 Resp 20 10/27/17 08:00 BP 106/69 10/27/17 08:00 Pulse Ox 99 10/27/17 08:00 - Labs Result Diagrams: 10/27/17 11:48 10/24/17 06:59 Labs: Laboratory Results - last 24 hr 10/27/17 11:48 WBC 11.0 H RBC 2.75 L Hgb 8.1 L Hct 23.3 L MCV 84.6 MCH 29.3 MCHC 34.6 RDW 16.9 H Plt Count 378 MPV 8.4 Neut % (Auto) 86.3 H Lymph % (Auto) 3.0 L Tripp % (Auto) 10.6 H Eos % (Auto) 0.0 Baso % (Auto) 0.1 Neut # (Auto) 9.5 H Lymph # (Auto) 0.3 L Tripp # (Auto) 1.2 H Eos # (Auto) 0.0 Baso # (Auto) 0.0 Assessment & Plan - Assessment and Plan (Free Text) Assessment: Palliative consult FULL CODE, there is no Advace Directive on chart, PPS 40% I reviewed medical records, all diagnostic studies, examined and interviewed patient in the bed. Patient is alert, oriented X 3, [place] speaking, looking chronically ill. Skin is pale, Hb 8.4. Patient is very skinny, reports weight loss since chemo Tx. Diminished breath sounds, no cough. Abdomen fat, active bowel sounds, tender to palpation to RLQ. Pain radiates to right flank. Reports regular BMs, on Lactulose. Pain responds well to Morphine IV PRN. Patient reports dislike to hospital's food. His daughter brings if home made food. Patent describes his appetite as fair. Goals of care discussed with patient. He is fully aware of his diagnosis. Patient states he wants " to fight" cancer, than cries and asks for help. I elicited his expectations of care. Patient reported wanting to go back home to [facility] where all his family is. He states " I have no body here", only my daughter". His sister flies to [facility] soon and he wants to go with her. The flight is abut 8 hr long and patient feels with pain meds on board he would be able to travel. Patient plans to continue chemo Tx back home as directed by his Oncologist Doctor Karena Ivan. Patient feels , his family over there would be able to help him more with care at [facility] that he needs. I discussed this with Doctor Hunter. Impression * Chronically ill male S/P whipple procedure * Nausea related to combination of Chemo Tx and constipation * Chronic Abdominal pain , relieved by meds only * Unwanted weight loss * Lack of family support here in [facility] * Feelings of anxiety, depression and hopelessness * Patient is asking to be discharged home today or tomorrow and to prepare to fly home to [facility] with his sister Suggestions * Continue Lactulose and monitor Bowel regimen * Would re check ammonia level * Patient may need Fentanyl Patch instead of Morphine for discharge home. Its long acting and easy to administer * Would D/C Ultram PO scheduled. Consider it PRN * Would discharge home with pain meds and to fallow up with his Oncologist before leaving the country. * patient's anxiety and depression will subside once he is among his close family and friends back home Palliative care will sign off at this time. Thank you for consulting palliative Care Advance care planing, 30 min
[2017-10-27 13:54] LABS: ALB/GLOB RATIO 0.9 (1.0-2.1); ALBUMIN 2.7 g/dL (3.5-5.0); ALT/SGPT 79 U/L (21-72); AST/SGOT 74 U/L (17-59); BLOOD UREA NITROGEN 3 mg/dL (9-20); CALCIUM 8.1 mg/dl (8.6-10.4); GFR AFRICAN-AMERICAN > 60; GFR NON-AFRICAN AMERICAN > 60
[2017-10-28] MEDS: Morphine 4 MG/ML VIAL IVP PRN ×2 (01:45→06:25)
--- NOTE | 2017-10-28 07:24 | CP.PCM.PN ---
Subjective - Date & Time of Evaluation Date of Evaluation: 10/28/17 Time of Evaluation: 07:20 - Subjective Subjective: PGY3 Progress Note-Dr. Rahman's service Patient seen and examined in no acute distress. Patient is tolerating his diet. He would like to be discharged this afternoon. His sister is coming from [place] and will travel with him to [facility], where he wishes to be. 12-point ROS otherwise negative. Patient denies subjective fevers or chills, nausea, vomiting , diarrhea at this time. -- Patient is stable for discharge per Dr. Rahman. Patient should resume all medications as outlined in this document. Additionally, patient should take the new medications listed below (scripts provided). 1. Please make an appointment and follow up with your Primary Doctor within one week of discharge. 2. You spoke with Ella (Hospice). You informed her that your sister will travel with you to [facility], where you wish to be. You will be provided with a pain medication patch which needs to be changed every 3 days. Please do not take Ultram as frequently while using these patches. 3. You have Pancreatic Adenocarcinoma, diagnosed in 11/2015, s/p whipple procedure. Please followup with your Oncologist Dr. Quan Ivan prior to leaving for [facility]. Patient should return to ED immediately if symptoms return or worsen. Instructions discussed with patient who understood and agreed. Newly prescribed medications: Fentanyl patch 12mcg TD q72H PRN pain #10 Tramadol 50mg PO q8H PRN pain #15 (use for breakthrough pain that fentanyl patch does not cover) Objective - Vital Signs/Intake and Output Vital Signs (last 24 hours): Temp Pulse Resp BP Pulse Ox 98.7 F 93 H 20 102/68 99 10/27/17 23:39 10/27/17 23:39 10/27/17 23:39 10/27/17 23:39 10/27/17 23:39 Intake and Output: 10/28/17 10/28/17 06:59 18:59 Intake Total 900 Output Total 500 Balance 400 - Medications Medications: Current Medications Dronabinol (Marinol) 2.5 mg PO BID [facility] Last Admin: 10/27/17 17:09 Dose: 2.5 mg Famotidine (Pepcid) 20 mg PO DAILY [facility] Last Admin: 10/27/17 09:40 Dose: 20 mg Sodium Chloride (Sodium Chloride 0.9%) 1,000 mls @ 75 mls/hr IV .[id number] [facility] Last Admin: 10/27/17 23:10 Dose: Not Given Lactulose (Enulose) 20 gm PO TID [facility] Last Admin: 10/27/17 17:09 Dose: 20 gm Morphine Sulfate (Morphine) 3 mg IVP Q4 PRN PRN Reason: Pain, severe (8-10) Last Admin: 10/28/17 06:25 Dose: 3 mg Tramadol HCl (Ultram) 50 mg PO Q6 [facility] Last Admin: 10/28/17 05:30 Dose: 50 mg Zolpidem Tartrate (Ambien) 5 mg PO HS PRN PRN Reason: Insomnia - Labs Labs: 10/27/17 11:48 10/27/17 11:48 PT 15.2 SECONDS (9.7-12.2) H 10/22/17 14:48 INR 1.4 10/22/17 14:48 APTT 27 SECONDS (21-34) 10/22/17 14:48 - Additional Findings Additional findings: - Head Exam Head Exam: ATRAUMATIC, NORMAL INSPECTION - Eye Exam Eye Exam: EOMI, Normal appearance, PERRL Pupil Exam: NORMAL ACCOMODATION - ENT Exam ENT Exam: Mucous Membranes Moist, Normal Oropharynx - Respiratory Exam Respiratory Exam: Clear to Ausculation Bilateral, NORMAL BREATHING PATTERN. absent: Chest Wall Tenderness, Prolonged Expiratory Phase - Cardiovascular Exam Cardiovascular Exam: REGULAR RHYTHM, +S1, +S2. absent: Murmurs - GI/Abdominal Exam GI & Abdominal Exam: Soft, Normal Bowel Sounds - Extremities Exam Extremities Exam: Full ROM. absent: Pedal Edema - Neurological Exam Neurological Exam: Alert, Awake, CN II-XII Intact, Oriented x3 - Psychiatric Exam Psychiatric exam: Normal Affect, Normal Mood Assessment and Plan - Assessment and Plan (Free Text) Assessment: Pancreatic Adenocarcinoma 10/27-10/28: Patient spoke with Ella (Hospice) and would like to be discharged today 10/28 at noon. His sister will travel with him to [facility], where he wishes to be. Adding on Fentanyl Patch. Pt will be discharged on 12mcg. He was advised to use less Tramadol since the patch will cover him for 3 days (he typically uses tramadol 50mg every 6 hours). pain management Tramadol 50mg q6h Morphine 3mg ivp q4h prn Palliative consulted. Help appreciated Cachexia continue home med: Dronabinol 2.5mg po BID NS at 75cc/hr Constipation as seen on abd xray Enulose 20mg po TID Fleet enema given. Insomnia Ambien 5mg po HS prn Prophylaxis Heparin 5000 units q12 Pepcid 20mg po daily Disposition: Patient spoke with Ella (Hospice) and reported wanting to go back home to [facility] where all his family is. He states " I have no body here", only my daughter". His sister flies to [facility] soon and he wants to go with her. The flight is abut 8 hr long and patient feels with pain meds on board he would be able to travel. Patient plans to continue chemo Tx back home as directed by his Oncologist Doctor Karena Ivan. Patient feels , his family over there would be able to help him more with care at [facility] that he needs. All management per Dr. Rahman -- Patient is stable for discharge per Dr. Rahman. Patient should resume all medications as outlined in this document. Additionally, patient should take the new medications listed below (scripts provided). 1. Please make an appointment and follow up with your Primary Doctor within one week of discharge. 2. You spoke with Ella (Hospice). You informed her that your sister will travel with you to [facility], where you wish to be. You will be provided with a pain medication patch which needs to be changed every 3 days. Please do not take Ultram as frequently while using these patches. 3. You have Pancreatic Adenocarcinoma, diagnosed in 11/2015, s/p whipple procedure. Please followup with your Oncologist Dr. Quan Ivan prior to leaving for [facility]. Patient should return to ED immediately if symptoms return or worsen. Instructions discussed with patient who understood and agreed. Newly prescribed medications: Fentanyl patch 12mcg TD q72H PRN pain #10 Tramadol 50mg PO q8H PRN pain #15 (use for breakthrough pain that fentanyl patch does not cover)
[2017-10-28 07:26] VITALS: O2SAT 98
[2017-10-28 08:16] LABS: BASO % 0.4 % (0.0-2.0); EOS % 0.1 % (0.0-4.0); HEMOGLOBIN 8.3 g/dL (12.0-18.0); LYMPH # 0.4 K/uL (1.0-4.3); MEAN CELL VOLUME 84.9 fL (80.0-94.0); MEAN CORPUSCULAR HEMOGLOBIN 29.1 pg (27.0-31.0); MEAN CORPUSCULAR HGB CONC 34.2 g/dL (33.0-37.0); MEAN PLATELET VOLUME 8.1 fL (7.2-11.7); MONO # 1.3 K/uL (0.0-0.8); MONO % 13.9 % (0.0-10.0); NEUT # 7.8 K/uL (1.8-7.0); NEUT % 81.6 % (50.0-75.0); PLATELET COUNT 397 K/uL (130-400); RBC 2.86 Mil/uL (4.40-5.90); WHITE BLOOD COUNT 9.5 K/uL (4.8-10.8)
[2017-10-28 08:32] LABS: ALB/GLOB RATIO 0.9 (1.0-2.1); ALBUMIN 2.8 g/dL (3.5-5.0); ALT/SGPT 81 U/L (21-72); AST/SGOT 83 U/L (17-59); BLOOD UREA NITROGEN 3 mg/dL (9-20); CALCIUM 8.5 mg/dl (8.6-10.4); GFR AFRICAN-AMERICAN > 60; GFR NON-AFRICAN AMERICAN > 60
[2017-10-28 09:08] VITALS: BP 100/63; PULSE 87; TEMP 97.9
[2017-10-28 09:24] LABS: ANISOCYTOSIS SLIGHT; BANDS 1 % (0-2); BURR CELLS SLIGHT; HYPOCHROMIC SLIGHT; LYMPHOCYTE 4 % (20-40); MONOCYTE 11 % (0-10); NEUTROPHIL 84 % (50-75); PLATELET ESTIMATE NORMAL (NORMAL); POIKILOCYTOSIS SLIGHT; TOTAL CELLS COUNTED 100
[2017-10-28] MEDS: Sodium Chloride 0.9% 1,000 ML IV SCH (13:20)
--- NOTE | 2017-10-30 13:32 | DS ---
Copied To: Genesis Rahman MD Attending MD: Genesis Rahman MD The patient is having a history of endstage cancer, severe abdominal pain. The patient was placed on bedrest, supportive care, pain management. The patient will travel back to his own country, [facility]. DIAGNOSIS: Endstage pancreatic cancer. Genesis Rahman MD
== END 2017-10-28 14:59 | disposition home or self-care (01) | DRG 203 ==
LOC: C.ER 13:32 → C.9E 15:56 → C.3T 17:28
PROVIDERS: ADMIT Internal Medicine Pulmonary Disease; ATTEND Internal Medicine Pulmonary Disease
DX: C25.9 Malignant neoplasm of pancreas, unspecified (principal); C78.7 Secondary malignant neoplasm of liver and intrahepatic bile duct; E86.0 Dehydration; R64 Cachexia; I11.0 Hypertensive heart disease with heart failure; I50.9 Heart failure, unspecified; G89.29 Other chronic pain; D64.9 Anemia, unspecified; F32.9 Major depressive disorder, single episode, unspecified; F41.9 Anxiety disorder, unspecified; G47.00 Insomnia, unspecified; K59.00 Constipation, unspecified; N28.9 Disorder of kidney and ureter, unspecified; Z87.891 Personal history of nicotine dependence; Z90.411 Acquired partial absence of pancreas